=== PATIENT | male | born 1950 | race Two or more races ===

== ENCOUNTER → 2025-02-28 | Outpatient (CLI) | payer MEDICARE, MEDICAID, SELFPAY ==
--- NOTE | 2025-02-28 09:17 | XR_ITS ---
Examination: Shoulder,left, 3 views Technique: Shoulder AP internal rotation, AP external rotation, Y view shoulder, 3 views Exam date and time :February 28, 2025 0930 hours INDICATIONS: Injury to the shoulder today, shoulder pain. FINDINGS: Severe osteopenia. Moderate osteoarthritis glenohumeral joint. Mild left shoulder calcific tendinitis. No shoulder fracture or dislocation IMPRESSION: No shoulder fracture or dislocation. Moderate osteoarthritis glenohumeral joint Mild left shoulder calcific tendinitis
[2025-02-28 10:25] LABS: Basophils # (Auto) 0.0 Thou/mm3 (0.0-0.2); Basophils % (Auto) 0 % (0-2.5); Eosinophils # (Auto) 0.3 Thou/mm3 (0.0-0.5); Eosinophils % (Auto) 5 % (0-10); Hematocrit 43.3 % (41.0-53.0); Hemoglobin 14.9 g/dL (13.5-16.0); Immature Granulocytes Auto 0.02 Thou/mm3 (0.00-0.00); Lymphocytes # (Auto) 1.3 Thou/mm3 (1.0-4.8); Lymphocytes % (Auto) 21 % (10-50); Mean Corpuscular HGB Conc 34.4 g/dl (31.0-37.0); Mean Corpuscular Hemoglobin 31.2 pg (25.0-35.0); Mean Corpuscular Volume 91 fL (80-100); Monocytes # (Auto) 0.5 Thou/mm3 (0.0-0.8); Monocytes % (Auto) 8 % (0-12); Neutrophils # (Auto) 4.2 Thou/mm3 (1.8-7.7); Neutrophils % (Auto) 66 % (37-80); Nucleated Red Blood Cell # 0.00 Thou/mm3 (0.00-0.00); Nucleated Red Blood Cell % 0 /100 WBC (0); Platelet Count 199 Thou/mm3 (140-440); RDW Standard Deviation 41.1 fL (35.1-43.9); Red Blood Count 4.77 Miln/mm3 (4.50-5.90); White Blood Count 6.4 Thou/mm3 (3.8-10.6)
[2025-02-28 10:34] LABS: Glucose Estimated Average 194 mg/dL (80-131); Hemoglobin A1C 8.4 % Hgb (4.8-6.0)
[2025-02-28 10:37] LABS: Alanine Aminotransferase 40 U/L (10-49); Albumin, Serum 4.7 gm/dL (3.4-4.8); Albumin/Globulin Ratio 1.6 (1.2-2.2); Alkaline Phosphatase 145 U/L (46-116); Anion Gap 8 (7-16); Aspartate Amino Transferase 24 U/L (0-34); BUN/Creatinine Ratio 19 Ratio (12-20); Bilirubin,Total 0.7 mg/dL (0.3-1.2); Blood Urea Nitrogen 23 mg/dL (9-23); Calcium 10.1 mg/dL (8.3-10.6); Calcium (Corrected) 10.1 mg/dL (8.5-10.1); Carbon Dioxide 26.0 mMol/L (20.0-31.0); Cardiac Risk Estimate 4.8 RATIO (4.0-6.7); Chloride 107 mMol/L (98-107); Cholesterol 201 mg/dL (132-200); Creatinine (Component) 1.2 mg/dL (0.6-1.3); Globulin 3.0 gm/dL (2.3-3.5); Glucose 154 mg/dL (74-106); HDL Cholesterol 42 mg/dL (40-60); LDL Cholesterol,Calculated 107 mg/dL (0-130); Osmolality,Calculated 287 (275-295); Potassium 4.7 mMol/L (3.4-5.1); Sodium 141 mMol/L (136-145); Thyroid Stimulating Hormone 2.54 uIU/mL (0.55-4.78); Total Protein 7.7 gm/dL (5.7-8.2); Triglycerides 260 mg/dL (30-150); eGFR > 60 See Note
[2025-02-28 10:39] LABS: Prostate Specific Antigen 0.43 ng/mL (0-4.00)
[2025-02-28 10:44] LABS: Collection Type, Urine Clean Catch
[2025-02-28 10:57] LABS: Vitamin B12 1241 pg/mL (211-911); Vitamin D 25 Hydroxy Total 24.2 ng/mL (7.3-40.2)
[2025-02-28 11:08] LABS: Bilirubin,Urine Negative (Negative); Blood,Urine Trace (Negative); Clarity,Urine Clear (Clear/Hazy); Color,Urine Lt-Yellow (Lt Yel-Yel); Culture Indicated,Urine Not Indicated; Glucose, Urine 4+ (Negative); Hyaline Casts,Urine < 1 /hpf (0-1); Ketones,Urine Negative (Negative); Leukocyte Esterase,Urine Negative (Negative); Nitrite,Urine Negative (Negative); PH,Urine 6.0 (5.0-7.0); Protein,Urine 2+ (Neg - Trace); RBC,Urine 2 /hpf (0-3); Specific Gravity,Urine 1.018 (1.001-1.035); Squamous Epithelial Cell,Urine 1 /hpf (0-5); Urobilinogen,Urine Negative mg/dL (0.0-1.0); WBC,Urine 1 /hpf (0-5)
[2025-02-28 11:13] LABS: Creatinine MALB Rnd Ur 54 mg/dL (30-125)
[2025-02-28 11:24] LABS: Microalbumin Creat Ratio 2144 mg/gCrea (<30); Microalbumin, Random Urine 1158 mg/L (0-300)
== END | disposition home or self-care (01) ==
PROVIDERS: PCP Physician Assistant; Referring Provider Physician Assistant; Visit Provider Physician Assistant
DX: M19.012 Primary osteoarthritis, left shoulder (principal); M75.32 Calcific tendinitis of left shoulder; I10 Essential (primary) hypertension; E78.5 Hyperlipidemia, unspecified; Z12.11 Encounter for screening for malignant neoplasm of colon; Z12.5 Encounter for screening for malignant neoplasm of prostate; E11.65 Type 2 diabetes mellitus with hyperglycemia
CPT/HCPCS: 36415; 73030; 80053; 80061; 81001; 82043; 82306; 82570; 82607; 83036; 84153; 84443; 85025

== ENCOUNTER → 2025-03-02 | Outpatient (CLI) | payer MEDICARE, MEDICAID, SELFPAY ==
[2025-03-06 07:04] LABS: Fecal Globin Result NOT DETECTED (NOT DETECTED)
== END | disposition home or self-care (01) ==
LOC: SLDO 10:23
PROVIDERS: PCP Family Medicine; Referring Provider Physician Assistant; Visit Provider Physician Assistant
DX: Z12.11 Encounter for screening for malignant neoplasm of colon (principal)
CPT/HCPCS: 82274; G0328

== ENCOUNTER 2025-04-06 12:36 | Inpatient (IN) | payer MEDICARE, MEDICAID, SELFPAY ==
[2025-04-06] VITALS (17 sets, daily range): BP systolic 147–195; BP diastolic 68–92; PULSE 70–98; RESP 16–32; TEMP 36.4–37.2; O2SAT 93–99; BMI 25.4
--- NOTE | 2025-04-06 12:44 | XR_ITS ---
Examination: AP chest single view Technique one AP portable upright chest single view Date and time: April 06, 2025 1346 hours, comparison January 28, 2018 INDICATIONS: Stroke alert FINDINGS: Mild prominence of ventricle. No aspiration pneumonia. Cardiac leads satisfactory position IMPRESSION: No aspiration pneumonia.
--- NOTE | 2025-04-06 12:44 | XR_ITS ---
Examination: CTA carotids with intravenous contrast CTA brain, head with intravenous contrast. 2-D sagittal, coronal reconstructions. 3-D reconstructions. Exam date and time: April 06, 2025, 1307 hours CTDI: vol (mGy) 24.9 DLP: (mGycm) 172 Technique: Multiple CTA axial brain, head carotid images post intravenous contrast injection 75 cc, Isovue-370. 2-D sagittal, coronal reconstructions. 3-D reconstructions, 3-D post processing including vascular maximum intensity projection images. Low dose protocols were performed. One or more of the following dose reduction techniques were used; automated exposure control, adjustment of the mA and/or KV according to patient size, use of iterative reconstruction technique. Findings: No significant stenoses common carotid arteries carotid bifurcations on the right Heavy calcification left carotid bifurcation, 40-60% stenosis origin left internal carotid artery Dominant left vertebral artery with no critical stenoses in the neck Intracranial vertebral arteries intact 70% to 80% stenosis in the distal basilar artery Posterior cerebral branches fill with no large vessel occlusions Juxtasellar internal carotid arteries demonstrate heavy calcification 50% stenosis on the left 40% stenosis on the on the right No middle cerebral or anterior cerebral artery large vessel occlusions IMPRESSION: 40-60% stenosis origin left internal carotid artery 70-80% stenosis distal basilar artery No cerebral large vessel arterial occlusions
--- NOTE | 2025-04-06 12:44 | XR_ITS ---
Examination: CT brain head without contrast. 2-D sagittal coronal reconstructions Date and time of exam:April 06, 2025 1250 hours, comparison April 19, 2023 INDICATIONS: Stroke alert, onset left-sided body weakness today. CTDI: vol (mGy):52.3 DLP: (mGycm):1121 Technique: Multiple CT axial sections of the brain have been obtained, 5 mm slice thickness. Contrast has not been administered. 2-D sagittal, coronal reconstructions have been obtained Low dose protocols were performed. One or more of the following dose reduction techniques were used; automated exposure control, adjustment of the mA and/or KV according to patient size, use of iterative reconstruction technique. Findings: No significant ventricular enlargement. Intra-axial or extra-axial hemorrhage density is not seen. No mass effect or midline shift Basal cisterns are not remarkable. Fourth ventricle is midline. Cranial vault intact. Impression: Negative for acute hemorrhage, mass effect or midline shift
--- NOTE | 2025-04-06 12:44 | EKG_ITS ---
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
--- NOTE | 2025-04-06 12:44 | PD.EDNEURO ---
Neuro Symptoms Deficit-RME/HPI General Chief Complaint: Neuro Symptoms/Deficit Stated Complaint: sudden onset left sided weakness since 1000 am Time Seen by Provider: 04/06/25 12:43 Arrival date/time: 04/06/25 12:36 Limitations: no limitations RME / HPI RME / HPI Narrative: 75 year old male with history of hypertension, diabetes, s/p cardiac pacemaker (2018) presents to the ED brought in by family for evaluation of left-sided weakness beginning at 10:00a today. Accompanied by pain to his left lower extremity and left-side of abdomen also beginning at 10:00a today. Patient denies any history of similar symptoms or stroke. Denies any recent illness, fevers, chills, chest pain, cough, shortness of breath, n/v/d, or urinary symptoms. Related Data Home Medications ?Medication ?Instructions ?Recorded ?Confirmed metformin 1,000 mg tablet 1,000 mg PO BID 01/27/18 04/06/25 losartan 100 mg tablet 100 mg PO DAILY 04/06/25 04/06/25 Previous Rx's ?Medication ?Instructions ?Recorded aspirin 81 mg tablet,delayed 81 mg PO QDAY #30 tabs 01/29/18 release (Aspir-Low) amlodipine 10 mg tablet 10 mg PO HS 30 days #30 tabs 04/10/25 atorvastatin 40 mg tablet 40 mg PO HS 30 days #30 tabs 04/10/25 Allergies Allergy/AdvReac Type Severity Reaction Status Date / Time No Known Allergies Allergy Verified 04/19/23 14:39 Review of Systems Review of Systems Systems Reviewed: All systems reviewed, normal except as documented Past Medical History Past Medical History CARDIAC: Positive Hypertension ENDOCRINE: Positive Diabetes Mellitus Type 2 Social History SMOKING STATUS: Never smoker SUBSTANCE USE: does not use ED Exam General Limitations: Present no limitations General appearance: Present alert and in no apparent distress Head Head exam: Present atraumatic and normocephalic Eye Eye exam: Present normal appearance, PERRL and EOMI ENT ENT exam: Present normal exam, normal oropharynx and mucous membranes moist Neck Neck exam: Present normal inspection, full ROM and trachea midline Chest Chest inspection: Present normal inspection and symmetric chest wall rise Respiratory Respiratory exam: Present normal lung sounds bilaterally Cardiovascular Cardiovascular exam: Present regular rate, normal rhythm and normal heart sounds Abdominal Exam Abdominal exam: Present soft; Absent distention, tenderness, guarding or rebound Extremities Exam Extremities exam: Present normal inspection Back Exam Back exam: Present normal inspection Neurological Exam Neurological exam: Present alert, oriented X3 and other (left facial droop, left upper extremity weakness) Psychiatric Psychiatric exam: Present normal affect and normal mood Skin Skin exam: Present warm, dry, intact and normal color Course Quality Measures Suspected type of Stroke: Acute Ischemic Tenecteplase given: Reason(s) TPA not given: Outside the time window not given stroke Orders Category Date Time Status Admit to Inpatient Status Routine Admission 04/06/25 17:06 Active Patient Condition Routine Admission 04/06/25 17:05 Ordered Bedside Blood Glucose NOW Care 04/06/25 12:44 Completed COVID-19 Screening Questionnaire NOW Care 04/06/25 16:[address] Screening NOW Care 04/06/25 12:45 Completed Communications Officer NOW Care 04/06/25 12:44 Completed Continuous Pulse Oximetry NOW Care 04/06/25 12:44 Completed Decision to Admit X1 Care 04/06/25 16:43 Completed EKG (ED ONLY) *Do not use* NOW Care 04/06/25 12:44 Completed In and Out Catheter NEEDED Care 04/06/25 12:44 Completed Insert IV NOW Care 04/06/25 12:44 Completed NIH Stroke Scale now Care 04/06/25 12:44 Completed NPO NOW Care 04/06/25 12:44 Completed Notify provider NEEDED Care 04/06/25 17:05 Completed Nurse Swallow Screen x1 Care 04/06/25 12:44 Completed Consult to Neurology / Tele-Neurology Routine Cons 04/06/25 12:[address] angio chest abdomen pelvis Stat Exams 04/06/25 12:[address] angio stroke protocol Stat Exams 04/06/25 12:[address] stroke protocol Stat Exams 04/06/25 12:44 Completed EKG (ED Only) Stat Exams 04/06/25 12:44 Draft US abdomen limited Stat Exams 04/06/25 15:02 Completed XR chest 1V portable Stat Exams 04/06/25 12:44 Completed BNP [B-Type Natriuretic Peptide] Stat Lab 04/06/25 12:45 Completed CBC Stat Lab 04/06/25 12:45 Completed Comprehensive Metabolic Panel Stat Lab 04/06/25 12:45 Completed Drug Screen,Urine Stat Lab 04/06/25 14:02 Completed HCG Titer if Positive Stat Lab 04/06/25 12:45 Completed Magnesium Stat Lab 04/06/25 12:45 Completed Partial Thromboplastin Time Stat Lab 04/06/25 12:45 Completed Prothrombin Time with INR Stat Lab 04/06/25 12:45 Completed Troponin I Stat Lab 04/06/25 12:45 Completed Type and Screen Stat Lab 04/06/25 13:03 Completed Urinalysis, C/S if Indicated Stat Lab 04/06/25 14:02 Completed Albuterol/Ipratr Rt Shirley [Duoneb Rt Shirley] Med 04/06/25 12:55 Discontinued 3 ml INH X1 ONE Ringers Lactated 500 ml [Lactated Ringers] 500 ml Med 04/06/25 15:12 Discontinued IV 500 mls/hr Code Status Routine Oth 04/06/25 17:05 Completed Oxygen Delivery NOW RT 04/06/25 12:44 Completed Vital Signs Vital signs: Vital Signs Temperature 97.9 F 04/06/25 12:42 Pulse Rate 86 04/06/25 12:42 Respiratory Rate 16 04/06/25 12:42 Blood Pressure 157/76 H 04/06/25 12:42 Pulse Oximetry (%) 98 04/06/25 12:42 Oxygen Delivery Method Room Air 04/06/25 12:42 Pulse ox is 98% on room air which is adequate. Neuro Symptoms / Deficit MDM Narrative MDM Narrative:: IDelphine am scribing for and in the presence of Dr. Gamboa. 12:40p Patient evaluated in ED room 15. Stroke alert activated. VS and exam as listed. Ordered labs. CT head, CTA, offered meds for symptom relief.Ct brain unremarkeable. CTA w/o evidence of large vessel occlusion. Labs w/o any acute hematologic abnl, patient creatinine 1.7, UA w/o evidence of infection. 13:45p I spoke with teleneurologist Dr. Núñez. Reports patients last known well is yesterday evening and out of window to receive TNK. Recommends admission for stroke work-up. I spoke with hospitalist team C regarding admission. Kindly accept patient for admissin Patient data External records reviewed:: [facility] previous records Clinical information provided by:: patient Social determinants that could affect healthcare access:: none Patient has the following chronic illnesses:: HTN, DM, s/p pacemaker How is presenting disease/condition affected by chronic disease/condition?: exacerbated by Evaluation data The following diagnostics were reviewed and interpreted by me:: lab results, radiology exam(s) and EKG tracing(s) Lab and/or radiology exams considered but not ordered:: None Interpretation Summary: See [facility] Medications / Prescriptions Medications or Prescriptions considered but not ordered:: None Medication administrations:: Medication Administration History Discontinued Medications Acetaminophen (Acetaminophen 325 Mg Tablet) 1,000 mg PO Q6H PRN PRN Reason: Fever >99.9 Stop: 05/06/25 17:14 Last Admin: 04/06/25 17:55 Dose: 1,000 mg Documented By: BY Acetaminophen (Acetaminophen 500 Mg Tablet) 1,000 mg PO Q6H PRN PRN Reason: Fever >99.9 Stop: 05/06/25 17:14 Acetaminophen (Acetaminophen 325 Mg Tablet) 1,000 mg PO Q4HR PRN PRN Reason: Pain Scale 1-3 Mild Stop: 05/07/25 11:15 Acetaminophen (Acetaminophen 500 Mg Tablet) 1,000 mg PO Q4HR PRN PRN Reason: Pain Scale 1-3 Mild Stop: 05/07/25 11:15 Hydrocodone Bitart/Acetaminophen (Hydrocodone/Apap 5/325 Tablet) 1 tab PO Q6HR PRN PRN Reason: Moderate Pain 4-6 Stop: 04/12/25 10:43 Hydrocodone Bitart/Acetaminophen (Hydrocodone/Apap 5/325 Tablet) 1 tab PO Q6HR PRN PRN Reason: PAIN SCALE 4-6 Moderate Stop: 04/12/25 11:15 Last Admin: 04/10/25 12:15 Dose: 1 tab Documented By: CHRISTI Albuterol/Ipratropium (Albuterol/Ipratropium (Duoneb) Rt Shirley 3 Ml Nebu) 3 ml INH X1 ONE Stop: 04/06/25 12:56 Amlodipine Besylate (Amlodipine Besylate 5 Mg Tablet) 10 mg PO HS GERTRUDIS Stop: 05/08/25 20:59 Last Admin: 04/09/25 20:35 Dose: 10 mg Documented By: Admin: 04/08/25 22:23 Dose: 10 mg Documented By: KIRSTIN Aspirin (Aspirin Ec 81 Mg Tabec) 81 mg PO DAILY GERTRUDIS Stop: 05/07/25 08:59 Last Admin: 04/10/25 08:08 Dose: 81 mg Documented By: Admin: 04/09/25 09:56 Dose: 81 mg Documented By: Admin: 04/08/25 08:12 Dose: 81 mg Documented By: Admin: 04/07/25 09:38 Dose: 81 mg Documented By: MILAN Atorvastatin Calcium (Atorvastatin Calcium 10 Mg Tablet) 40 mg PO HS GERTRUDIS Stop: 05/06/25 20:59 Last Admin: 04/09/25 20:34 Dose: 40 mg Documented By: Admin: 04/08/25 22:23 Dose: 40 mg Documented By: Admin: 04/07/25 22:52 Dose: 40 mg Documented By: Admin: 04/06/25 22:56 Dose: 40 mg Documented By: MARLEY Dextrose (Dextrose 50%-Water Inj 50 Ml Syringe) 25 ml IV Q15MIN PRN PRN Reason: BG 50-70 responsive npo pt Stop: 05/06/25 18:32 Dextrose (Dextrose 50%-Water Inj 50 Ml Syringe) 50 ml IV Q15MIN PRN PRN Reason: BG <50 OR BG <70 & pt unresponsive Stop: 05/06/25 18:32 Diltiazem HCl (Diltiazem 30 Mg Tablet) 30 mg PO BID GERTRUDIS Stop: 05/08/25 11:59 Last Admin: 04/08/25 12:03 Dose: 30 mg Documented By: MILAN Glucagon (Glucagon Inj 1 Mg Vial) 1 mg IM Q15MIN PRN PRN Reason: BG <70, and no IV access Heparin Sodium (Porcine) (Heparin Sod Inj 5000 Unit/Ml Vial) 5,000 unit SC Q12HR GERTRUDIS Stop: 04/20/25 20:59 Last Admin: 04/10/25 08:08 Dose: 5,000 unit Documented By: CHRISTI Co-signed By: RE Admin: 04/09/25 20:43 Dose: 5,000 unit Documented By: RADHA Co-signed By: LILO Admin: 04/09/25 09:56 Dose: 5,000 unit Documented By: MILAN Co-signed By: ERIC Admin: 04/08/25 22:23 Dose: 5,000 unit Documented By: KIRSTIN Co-signed By: LILO Admin: 04/08/25 08:14 Dose: 5,000 unit Documented By: MILAN Co-signed By: ANGELLA Admin: 04/07/25 22:57 Dose: 5,000 unit Documented By: MARIPOSA Co-signed By: LILO Admin: 04/07/25 09:39 Dose: 5,000 unit Documented By: MILAN Co-signed By: ANGELLA Admin: 04/06/25 21:46 Dose: 5,000 unit Documented By: ARIANE Co-signed By: [email or web address] Hydromorphone HCl (Hydromorphone Inj 2 Mg/Ml Vial) 0.5 mg IVP Q6HR PRN PRN Reason: Pain Severe 7-10 Stop: 04/12/25 11:22 Last Admin: 04/07/25 11:47 Dose: 0.5 mg Documented By: MILAN Lactated Ringer's (Lactated Ringers) 500 mls @ 500 mls/hr IV .Q1H ONE Stop: 04/06/25 16:11 Last Infusion: 04/06/25 17:04 Dose: Infused Documented By: Admin: 04/06/25 15:44 Dose: 500 mls/hr Documented By: BY Lactated Ringer's (Lactated Ringers) 1,000 mls @ 125 mls/hr IV .Q8H ONE Stop: 04/07/25 16:47 Last Admin: 04/07/25 09:41 Dose: 125 mls/hr Documented By: MILAN Magnesium Sulfate (Magnesium Sulfate Ivpb) 2 gm in 50 mls @ 25 mls/hr IV X1 ONE Stop: 04/08/25 10:38 Last Admin: 04/08/25 10:00 Dose: 25 mls/hr Documented By: MILAN Lactated Ringer's (Lactated Ringers) 1,000 mls @ 75 mls/hr IV .[id number] ONE Stop: 04/09/25 01:05 Last Admin: 04/08/25 12:03 Dose: 75 mls/hr Documented By: MILAN Lactated Ringer's (Lactated Ringers) 1,000 mls @ 75 mls/hr IV .[id number] GERTRUDIS Stop: 05/09/25 15:23 Last Admin: 04/10/25 05:00 Dose: 75 mls/hr Documented By: Infusion: 04/10/25 04:54 Dose: Infused Documented By: Admin: 04/09/25 15:34 Dose: 75 mls/hr Documented By: MILAN Insulin Human Lispro (Insulin Lispro (Admelog) 1 Unit/0.01 Ml Unit) 0 unit SC AC GERTRUDIS; Protocol Stop: 05/07/25 07:29 Insulin Human Lispro (Insulin Lispro (Admelog) 1 Unit/0.01 Ml Unit) 0 unit SC Q6HR GERTRUDIS; Protocol Stop: 05/06/25 20:14 Last Admin: 04/06/25 21:46 Dose: 1 unit Documented By: ARIANE Co-signed By: [email or web address] Insulin Human Lispro (Insulin Lispro (Admelog) 1 Unit/0.01 Ml Unit) 0 unit SC ACHS GERTRUDIS; Protocol Stop: 05/07/25 07:29 Last Admin: 04/10/25 17:02 Dose: Not Given Documented By: CHRISTI Non-Admin Reason: Patient Refused Admin: 04/10/25 12:06 Dose: Not Given Documented By: CHRISTI Non-Admin Reason: Per Protocol Admin: 04/10/25 07:18 Dose: Not Given Documented By: CHRISTI Non-Admin Reason: Per Protocol Admin: 04/09/25 20:44 Dose: 1 unit Documented By: RADHA Co-signed By: LILO Admin: 04/09/25 17:29 Dose: 3 unit Documented By: MILAN Co-signed By: ERIC(2) Admin: 04/09/25 11:53 Dose: 2 unit Documented By: MILAN Co-signed By: HERIBERTO Admin: 04/09/25 08:00 Dose: Not Given Documented By: MILAN Non-Admin Reason: Per Protocol Admin: 04/08/25 22:23 Dose: Not Given Documented By: KIRSTIN Non-Admin Reason: Per Protocol Admin: 04/08/25 17:07 Dose: 1 unit Documented By: MILAN Co-signed By: ANGELLA Admin: 04/08/25 12:07 Dose: 2 unit Documented By: MILAN Co-signed By: ERIC(2) Admin: 04/08/25 08:14 Dose: 1 unit Documented By: MILAN Co-signed By: ANGELLA Admin: 04/08/25 00:14 Dose: 1 unit Documented By: MARIPOSA Co-signed By: LILO Admin: 04/07/25 17:53 Dose: 2 unit Documented By: MILAN Co-signed By: ANGELLA Admin: 04/07/25 11:57 Dose: 1 unit Documented By: MILAN Co-signed By: ALEX Admin: 04/07/25 07:29 Dose: Not Given Documented By: MILAN Non-Admin Reason: Per Protocol Labetalol HCl (Labetalol Inj 5 Mg/Ml Vial 20 Ml) 10 mg IVP X1 PRN PRN Reason: Hypertensive Emergency Labetalol HCl (Labetalol Inj 5 Mg/Ml Vial 20 Ml) 10 mg IVP Q15MIN PRN PRN Reason: Hypertensive Emergency Stop: 05/06/25 20:05 Losartan Potassium (Losartan Potassium 25 Mg Tablet) 100 mg PO DAILY GERTRUDIS Stop: 05/08/25 08:59 Last Admin: 04/08/25 08:12 Dose: 100 mg Documented By: MILAN Morphine Sulfate (Morphine Sulf Inj 4 Mg/Ml Vial) 0.5 mg IV Q6HR PRN PRN Reason: PAIN SCALE 7-10 (Severe Stop: 04/12/25 11:15 Pantoprazole Sodium (Pantoprazole Inj 40 Mg Vial) 40 mg IVP Q12HR GERTRUDIS Stop: 05/06/25 20:59 Last Admin: 04/09/25 09:56 Dose: 40 mg Documented By: Admin: 04/08/25 22:23 Dose: 40 mg Documented By: Admin: 04/08/25 08:14 Dose: 40 mg Documented By: Admin: 04/07/25 22:53 Dose: 40 mg Documented By: Admin: 04/07/25 09:41 Dose: 40 mg Documented By: Admin: 04/06/25 21:45 Dose: 40 mg Documented By: ARIANE See above Consultations Consultation(s) initiated? (list below): Yes Consultation #1 (Physician, Specialty, Details): See MDM Diagnosis Neuro Differential Diagnosis: other (See MDM) Most likely diagnosis given after review of the tests above:: CARMELA Transaminitis Left sided weakness Chest pain Admission Indicated Admission indicated?: indicated Admission Request Was there a request for admission?: Yes Admission Attestation Admission request attestation: Discussed case with Hospitalist service regarding admission. Discussed patients ED course, exam findings, labs, and radiology results. The Hospitalist [agrees] to accept the patient for admission. Disposition Plan Disposition Plan: Admit Critical Care Time Critical Care Time Critical Care Time: Yes Total Critical Care Time (min.): 35 Attestation: The high probability of sudden, clinically significant deterioration in the patient's condition required the highest level of my preparedness to intervene urgently. The services I provided to this patient were to treat and/or prevent clinically significant deterioration. Services included the following: chart data review, reviewing nursing notes and/or old charts, documentation time, spa consultant collaboration regarding findings and treatment options, medication orders and management, direct patient care, vital sign assessments and ordering, interpreting and reviewing diagnostic studies and lab tests. Aggregate critical care time includes only time during which I was engaged in work directly related to the patient's care, as described above, whether at bedside or elsewhere in the Emergency Department. It did not include time spent performing other reported procedures or the services of residents, students, nurses or physician assistants. Discharge Plan Plan Patient Disposition: Admit Acute Care w/in Hospital Patient condition on transfer: Stable Problem List Clinical Impression: CARMELA (acute kidney injury), Transaminitis, Left-sided weakness, Chest pain Patient/Caregiver Discharge Instructions Other Activity Instructions:: Atorvastatin dose increased to 40 mg daily ? Start taking amlodipine 10 mg daily for blood pressure control ? Continue taking all other home medications as prescribed ? Follow-up with PCP within 1-2 weeks of discharge and recommend referral to rattling machine tender if renal function continues to decline ? Follow-up with neurologist, Dr. Rocha, outpatient for MRI studies ? If you do not have a PCP, you can follow-up at the [facility] (you can call [phone] to make an appointment) ? Return to ED if symptoms worsen or recur
--- NOTE | 2025-04-06 12:45 | XR_ITS ---
Examination: CTA chest, with intravenous contrast. CTA abdomen, with intravenous contrast. CTA pelvis, with intravenous contrast. 2-D sagittal and coronal reconstructions. 3-D reconstructions. Date and time of exam: April 06, 2025, 1311 hours INDICATIONS: Onset chest pain shortness of breath abdominal pain this week CTDI vol (mgy) 23.2 DLP (MGycm) 857 Technique: Multiple CTA images, 2.0 mm slice thickness, obtained chest, abdomen, pelvis, with the high-resolution 64 slice scanner. 100 cc Isovue-370 is administered intravenously. Sagittal and coronal 2-D reconstructions are obtained. 3-D reconstructions, angiographic images are obtained. 3-D postprocessing, including vascular maximum intensity projections. Low dose protocols were performed. One or more of the following dose reduction techniques were used; automated exposure control, adjustment of the mA and/or KV according to patient size, use of iterative reconstruction technique. Findings: No thoracic aortic aneurysmal dilatation or dissection No pulmonary artery filling defects Heavy calcification left anterior descending coronary artery No pneumonia pulmonary edema or pleural disease No visualized liver or splenic lesion Contracted gallbladder No pancreatic mass No extra hepatic biliary tract dilatation No adrenal mass Abdominal aorta is not enlarged Moderate renal scar formation, no hydronephrosis No bowel obstruction Normal appendix No diverticulitis Intact urinary bladder No significant prostatomegaly Severe osteopenia with prominent lumbar spondylosis IMPRESSION: Heavy calcification left anterior descending coronary artery Negative for pulmonary artery emboli Negative for thoracic aortic aneurysm or dissection No renal or ureteral calculi, no hydronephrosis Moderate renal parenchymal scar formation Normal appendix No bowel obstruction or diverticulitis
[2025-04-06 13:16] LABS: Basophils # (Auto) 0.0 Thou/mm3 (0.0-0.2); Basophils % (Auto) 0 % (0-2.5); Eosinophils # (Auto) 0.0 Thou/mm3 (0.0-0.5); Eosinophils % (Auto) 0 % (0-10); Hematocrit 35.5 % (41.0-53.0); Hemoglobin 12.5 g/dL (13.5-16.0); Immature Granulocytes Auto 0.04 Thou/mm3 (0.00-0.00); Lymphocytes # (Auto) 0.8 Thou/mm3 (1.0-4.8); Lymphocytes % (Auto) 8 % (10-50); Mean Corpuscular HGB Conc 35.2 g/dl (31.0-37.0); Mean Corpuscular Hemoglobin 30.5 pg (25.0-35.0); Mean Corpuscular Volume 87 fL (80-100); Monocytes # (Auto) 0.7 Thou/mm3 (0.0-0.8); Monocytes % (Auto) 7 % (0-12); Neutrophils # (Auto) 8.2 Thou/mm3 (1.8-7.7); Neutrophils % (Auto) 84 % (37-80); Nucleated Red Blood Cell # 0.00 Thou/mm3 (0.00-0.00); Nucleated Red Blood Cell % 0 /100 WBC (0); Platelet Count 195 Thou/mm3 (140-440); RDW Standard Deviation 37.8 fL (35.1-43.9); Red Blood Count 4.10 Miln/mm3 (4.50-5.90); White Blood Count 9.7 Thou/mm3 (3.8-10.6)
[2025-04-06 13:19] LABS: HCG Titer if Positive Negative; INR 1.0 (0.9-1.3); Partial Thromboplastin Time 27.3 Seconds (22.0-36.0); Prothrombin Time 11.1 Seconds (9.0-12.2)
[2025-04-06 13:27] LABS: Alanine Aminotransferase 107 U/L (10-49); Albumin, Serum 4.3 gm/dL (3.4-4.8); Albumin/Globulin Ratio 1.4 (1.2-2.2); Alkaline Phosphatase 350 U/L (46-116); Anion Gap 12 (7-16); Aspartate Amino Transferase 98 U/L (0-34); BUN/Creatinine Ratio 15 Ratio (12-20); Bilirubin,Total 1.6 mg/dL (0.3-1.2); Blood Urea Nitrogen 26 mg/dL (9-23); Calcium 9.3 mg/dL (8.3-10.6); Calcium (Corrected) 9.3 mg/dL (8.5-10.1); Carbon Dioxide 22.9 mMol/L (20.0-31.0); Chloride 102 mMol/L (98-107); Creatinine (Component) 1.7 mg/dL (0.6-1.3); Globulin 3.0 gm/dL (2.3-3.5); Glucose 264 mg/dL (74-106); Magnesium 1.5 mg/dL (1.6-2.6); Osmolality,Calculated 287 (275-295); Potassium 4.4 mMol/L (3.4-5.1); Sodium 137 mMol/L (136-145); Total Protein 7.3 gm/dL (5.7-8.2); Troponin I 0.024 ng/mL (0.0-0.045); eGFR 41 See Note
[2025-04-06 13:38] LABS: B-Type Natriuretic Peptide 152 pg/mL (0-100)
--- NOTE | 2025-04-06 14:01 | PD.TNEURO ---
Tele Neuro Consultation Consultation Date 04/06/25 Most Recent Vital Signs Last Vital Signs Temp 97.6 F 04/06/25 13:38 Pulse 84 04/06/25 13:38 Resp 18 04/06/25 13:38 BP 191/92 H 04/06/25 13:38 Pulse Ox 96 04/06/25 13:38 O2 Del Method Room Air 04/06/25 13:38 O2 Flow Rate 98 04/06/25 13:31 Laboratory-Coagulation Panel PT 11.1 Seconds (9.0-12.2) 04/06/25 12:45 INR 1.0 (0.9-1.3) 04/06/25 12:45 APTT 27.3 Seconds (22.0-36.0) 04/06/25 12:45 Consultation Narrative [facility] Tele[facility]rology Consult Services Patient Name:???KEYANNA PARIKH Date of :???[id number] Identification Number:??? Date of Service:???04/06/2025 12:59:02 Diagnosis:?R53.1 - Weakness ?R26.81 - Unsteady gait Impression: ?75 yr old man hx of htn, lipids, DM, post pacemaker, comes with L leg weakness, pain, Niece is at bedside and helps with history. Cymro interpretation is used for entire assessment and management. ?The pt has been having L leg pain, weakness for last 1- days. This morning, he woke up at 9 am, had difficulty walking because of L leg pain , weakness, noted to have L facial droop. He has L shoulder pain from fall and injury few weeks ago. NIH 4- L face, arm, leg drift, disorientation to month. he denied headache, neck pain, he has low back pain, no urine or bowel habit changes. ?CT head no acute changes per radiology. 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 ?Diff Dx: r/o CVA, TIA, HTN encephalopathy, lumbo sacral radiculopathy , other, out of iv thrombolytic window. Our recommendations are outlined below. Recommendations: ? Stroke/Telemetry Floor ? Neuro Checks (Q4) ? Bedside Swallow Eval ? DVT Prophylaxis ? IV Fluids, Normal Saline ? Head of Bed 30 Degrees ? Euglycemia and Avoid Hyperthermia (PRN Acetaminophen) ? Initiate or continue Aspirin 325 MG daily ? Antihypertensives PRN if Blood pressure is greater than 220/120 or there is a concern for End organ damage/contraindications for permissive HTN. If blood pressure is greater than 220/120 give labetalol PO or IV or Vasotec IV with a goal of 15% reduction in BP during the first 24 hours. ?- close neuro checks, and re consult with any clinical changes, given basilar artery stenosis, permissive HTN , ASA ?- MRI brain and MRI LS spine to r/o cva, lumbar radiculopathy ?- Neuro fup ?d/w pt, niece, family, RN ?Cymro interpretation used ?d/w ER Dr Gamboa all the recs., Sign Out: ? Discussed with Emergency Department Provider Advanced Imaging:CTA Head and Neck Completed. LVO:No Patient is not a candidate for ROSETTA Metrics: Last Known Well: Unknown Dispatch Time: 04/06/2025 12:59:02 Arrival Time: 04/06/2025 12:36:00 Initial Response Time: 04/06/2025 13:11:28Symptoms: L leg pain, weakness. Initial patient interaction: 04/06/2025 13:29:41 NIHSS Assessment Completed: 04/06/2025 13:35:04Patient is not a candidate for Thrombolytic. Thrombolytic Medical Decision: 04/06/2025 13:35:28Patient was not deemed candidate for Thrombolytic because of following reasons: LKW outside 4.[address] Head: CT head unremarkable for acute infarction or hemorrhage per Radiology: no acute changes per radiology. Primary Provider Notified of Diagnostic Impression and Management Plan on: 04/06/2025 13:53:45 History of Present Illness:Patient is a 75 year old Male. Patient was brought by private transportation with symptoms of L leg pain, weakness. 75 yr old man hx of htn, lipids, DM, post pacemaker, comes with L leg weakness, pain, Niece is at bedside and helps with history. Cymro interpretation is used for entire assessment and management. The pt has been having L leg pain, weakness for last 1- days. This morning, he woke up at 9 am, had difficulty walking because of L leg pain , weakness, noted to have L facial droop. He has L shoulder pain from fall and injury few weeks ago. NIH 4- L face, arm, leg drift, disorientation to month. he denied headache, neck pain, he has low back pain, no urine or bowel habit changes. ? Past Medical History: ?Hypertension ?Diabetes Mellitus ?Hyperlipidemia Other PMH:? pacemaker Medications: No Anticoagulant use? No Antiplatelet use Reviewed EMR for current medications Allergies:? Reviewed Social History: Smoking: No Family History: There is no family history of premature cerebrovascular disease pertinent to this consultation ROS : 14 Points Review of Systems was performed and was negative except mentioned in HPI. Past Surgical History: There Is No Surgical History Contributory To Today?s Visit ? Examination: BP(190/70),?Pulse(85), 1A: Level of Consciousness - Alert; keenly responsive?+ 0 1B: Ask Month and Age - 1 Question Right?+ 1 1C: Blink Eyes & Squeeze Hands - Performs Both Tasks?+ 0 2: Test Horizontal Extraocular Movements - Normal?+ 0 3: Test Visual Pederson - No Visual Loss?+ 0 4: Test Facial Palsy (Use Grimace if Obtunded) - Minor paralysis (flat nasolabial fold, smile asymmetry)?+ 1 5A: Test Left Arm Motor Drift - Drift, but doesn't hit bed?+ 1 5B: Test Right Arm Motor Drift - No Drift for 10 Seconds?+ 0 6A: Test Left Leg Motor Drift - Drift, but doesn't hit bed?+ 1 6B: Test Right Leg Motor Drift - No Drift for 5 Seconds?+ 0 7: Test Limb Ataxia (FNF/Heel-Anna) - No Ataxia?+ 0 8: Test Sensation - Normal; No sensory loss?+ 0 9: Test Language/Aphasia - Normal; No aphasia?+ 0 10: Test Dysarthria - Normal?+ 0 11: Test Extinction/Inattention - No abnormality?+ 0 NIHSS Score:?4 NIHSS Free Text :?L arm / shoulder pain from fracture/ trauma from fall, L leg pain and weakness, gait deferred Pre-Morbid Modified Van Zandt Scale: 1 Points = No significant disability despite symptoms; able to carry out all usual duties and activities Spoke with :?SHIRA Gamboa This consult was conducted in real time using interactive audio and video technology. Patient was informed of the technology being used for this visit and agreed to proceed. Patient located in hospital and provider located at home/office setting. Patient is being evaluated for possible acute neurologic impairment and high probability of imminent or life-threatening deterioration. I spent total of 55 minutes providing care to this patient, including time for face to face visit via telemedicine, review of medical records, imaging studies and discussion of findings with providers, the patient and/or family. Dr Kelli Núñez [facility] For Inpatient follow-up with [facility] physician please call [facility] at . As we are not an outpatient service for any post hospital discharge needs please contact the hospital for assistance. If you have any questions for the [facility] physicians or need to reconsult for clinical or diagnostic changes please contact us via [facility] at . Signature :Sabas Núñez ?
[2025-04-06 14:11] LABS: Collection Type, Urine Catheter
[2025-04-06 14:13] LABS: Bilirubin,Urine Negative (Negative); Blood,Urine 3+ (Negative); Clarity,Urine Clear (Clear/Hazy); Color,Urine Lt-Yellow (Lt Yel-Yel); Culture Indicated,Urine Not Indicated; Glucose, Urine 2+ (Negative); Ketones,Urine Negative (Negative); Leukocyte Esterase,Urine Negative (Negative); Nitrite,Urine Negative (Negative); PH,Urine 6.5 (5.0-7.0); Protein,Urine 1+ (Neg - Trace); RBC,Urine 2 /hpf (0-3); Specific Gravity,Urine 1.029 (1.001-1.035); Squamous Epithelial Cell,Urine < 1 /hpf (0-5); Urobilinogen,Urine Negative mg/dL (0.0-1.0); WBC,Urine < 1 /hpf (0-5)
[2025-04-06 14:21] LABS: Amphetamine/Methamp Scrn,U Negative (Negative); Barbiturate Screen,Urine Negative (Negative); Benzodiazepines Screen,Urine Negative (Negative); Benzoylecgonine Screen, Ur Negative (Negative); Fentanyl Screen,Urine Negative (Negative); Opiate Screen,Urine Negative (Negative); THC Screen,Urine Negative (Negative)
--- NOTE | 2025-04-06 15:02 | XR_ITS ---
Examination: Abdomen sonogram, Limited Date and time of exam: April 06, 2025 1559 hours INDICATIONS: Shortness of breath abdominal pain this week Technique: Real-time hollingsworth scale transabdominal sonographic images of the upper abdomen obtained. Findings: Contracted gallbladder Common bile duct 0.3 cm Pancreatic head 1.8 cm Liver 12.3 cm no focal liver lesions Normal hepatopedal portal venous flow Patent IVC IMPRESSION: Repeat the gallbladder portion of the study with fasting
[2025-04-06] MEDS: RINGERS LACTATED 500 ML 500 ML IV (15:44)
--- NOTE | 2025-04-06 15:51 | PC.NURSE ---
DR Leung at bedside with patient
[2025-04-06] MEDS: ACETAMINOPHEN 325 MG TABLET 1000 MG PO (17:55)
--- NOTE | 2025-04-06 18:30 | ECHO_ITS ---
Transthoracic Echo Report Ht (in): 62 Wt (lb): 139 Exam Location: [facility] Status: Inpatient Project Controls Scheduler: Trae Dsouza Indications: Procedure Performed: BP: 130 / 61 HR: 70 MEASUREMENTS (Male / Female) Normal Values 2D ECHO LV Diastolic Diameter PLAX 4.8 cm 4.2 - 5.9 / 3.9 - 5.3 cm LV Systolic Diameter PLAX 2.9 cm IVS Diastolic Thickness 0.9 cm 0.6 - 1.0 / 0.6 - 0.9 cm LVPW Diastolic Thickness 0.9 cm 0.6 - 1.0 / 0.6 - 0.9 cm LV Relative Wall Thickness 0.4 LVOT Diameter 1.9 cm LA Volume Index 27.7 cm?/m? 16 - 28 cm?/m? Ascending Aorta Diameter 2.6 cm M-MODE AV Cusp Separation MM 1.1 cm DOPPLER AV Peak Velocity 166.0 cm/s AV Peak Gradient 11.0 mmHg AV Mean Gradient 6.0 mmHg AV Velocity Time Integral 32.6 cm AI Peak Velocity 412.5 cm/s AI Peak Gradient 68.1 mmHg AI Pressure Half Time 547.5 ms LVOT Peak Velocity 106.0 cm/s LVOT Peak Gradient 4.5 mmHg LVOT Velocity Time Integral 21.2 cm LVOT Cardiac Index 2513.1 cm?/min?m? AV Area Cont Eq vti 1.8 cm? AV Area Cont Eq pk 1.8 cm? MV Area PHT 4.3 cm? Mitral E Point Velocity 67.3 cm/s Mitral A Point Velocity 81.0 cm/s Mitral E to A Ratio 0.8 LV E' Lateral Velocity 7.6 cm/s Mitral E to LV E' Lateral Ratio 8.8 LV E' Septal Velocity 5.0 cm/s Mitral E to LV E' Septal Ratio 13.5 TR Peak Velocity 258.5 cm/s TR Peak Gradient 26.7 mmHg PV Peak Velocity 96.4 cm/s PV Peak Gradient 3.7 mmHg FINDINGS Left Ventricle Normal left ventricular size, wall thickness, systolic function with no obvious regional wall motion abnormalities. There is grade I diastolic dysfunction of the left ventricle (impaired relaxation pattern). The ejection fraction is visually estimated at 50-55 %. Right Ventricle The right ventricle is normal in size and systolic function. The estimated right ventricular systolic pressure,33 mmHg with RAP 3. Mild HTN Left Atrium The left atrial cavity size is mildly increased. Right Atrium The right atrium is normal by two-dimensional imaging, color flow and Doppler imaging with no structural abnormalities, no thrombus formation present. Atrial Septum The interatrial septum appears normal with no evidence of a shunt. No jhayn-sh-imth shunt demonstrated by agitated saline injection. Aorta The aorta is normal by two-dimensional, color flow and Doppler interrogation. Mitral Valve The mitral valve is normal by two-dimensional, color flow and Doppler interrogation.Mild mitral regurgitation. Aortic Valve Aortic valve sclerosis without stenosis. Ohkapccv-ib-kyxghb aortic valve regurgitation. Tricuspid Valve The tricuspid valve is normal by two-dimensional, color flow and Doppler interrogation. There is mild to moderate tricuspid valve regurgitation. Pulmonic Valve The pulmonic valve is not well visualized. There is no significant pulmonic valve regurgitation. Vessels The pulmonary artery appears normal. The inferior vena cava pulmonary and hepatic veins appear normal. Pericardium The pericardium is normal by two-dimensional imaging. There is no significant pericardial effusion. CONCLUSIONS Indication: CVA Bubble study negative for any PFO or ASD.. Consider NICKI if high clinical index of suspicion of LA or LA thrombus Normal left ventricular size and function. Grade I diastolic dysfunction. Approximate ejection fraction is 55- 60%. Normal right ventricular size and function. RVSP 33 mmHg with RAP 3. Mild MR and AI. Moderate to severe TR. Pace wire noted in RV/RA Mild dilated LA . Mild to moderate aortic valve stenosis without stenosis. Bebeto Mckenzie (Electronically Signed) Final Date: 08 April 2025 23:16
--- NOTE | 2025-04-06 18:35 | PC.NURSE ---
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
--- NOTE | 2025-04-06 19:35 | PD.RESCONSUL ---
HPI Data of Consult Requesting Physician: Brandon Seay MD Admitting Provider: Brandon Seay MD Attending Provider: Brandon Seay MD Primary Care Provider: Physician No Primary/Family Consult Narrative Reason for consult: stroke and lumbosacral radiculopathy History of present illness: This patient is a 75-year-old male with past medical history of hypertension, hyperlipidemia, type 2 diabetes, post pacemaker presented to the ED on 04/06/2025 with chief complaint of left leg weakness and pain. Niece is present at the bedside and helped with the history. Patient reported that she had left leg pain and weakness from last 1 day. This morning, patient woke up at 9 AM and had difficulty walking associated with leg pain and weakness and noted to have left sided facial droop. He also reported to have left shoulder pain due to fall and injury few weeks ago. NIHSS is 4. He denied any headache, neck pain and has low back pain. Denied any changes in urine or bowel habits. Head CT showed no acute changes. 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 In the ED, patient was hypertensive blood pressure 182/76, heart rate 90, afebrile and saturating well on room air. Labs showed unremarkable white count and normocytic anemia with hemoglobin 12.5. Coagulation panel showed INR 1.0. Chemistry panel was unremarkable. Kidney function shows CARMELA with BUN 26 and creatinine 1.7. Blood glucose 264. A1c from 02/28/2025 8.4. Magnesium 1.5. Mildly elevated liver enzymes with elevated T. bili 1.6. Urinalysis showed proteins, glucose and lites. U tox was negative. EKG showed electronic ventricular pacemaker with QTc 472. CTA chest abdomen pelvis showed heavy calcified LAD. Neuroexam revealed patient has left facial droop, left arm drift and left leg weakness. Left leg weakness is vague as patient has pain in his leg and was having difficulty lifting that leg during assessment. Left arm drift was attributed to shoulder trauma in the past per patient's niece. PMH: As above PSH: Pacemaker placement SH: Denies smoking, drinking alcohol. No history of illicit drug use. Allergies: NKDA FH: No history of CVA Home medications: Metformin and losartan, med rec pending Patient was seen and examined at the bedside. Patient's niece was also present at the bedside. She reported that patient this morning had left-sided weakness and pain around 10:00 while EMS was called. Patient also fell but denied hitting his head on the floor. Patient's niece noted that patient had left facial droop. Patient denied any chest pain, fever chills or any other complaint. Patient's niece reported that patient's blood pressure has been uncontrolled with the medications he is taking and has been seeing his PCP for optimization of medications. He has difficulty walking. Patient also has inattention and did not knew why he is in the hospital. Neuroexam revealed patient has left facial droop, left arm drift and left leg weakness. Left leg weakness is vague as patient has pain in his leg and was having difficulty lifting that leg during assessment. Leg pain appears to be sciatic type as straight leg raise was positive. Left arm drift was attributed to shoulder trauma in the past per patient's niece. Recommended to continue aspirin and statin. Will follow-up with MRI brain, MRI lumbo-sacral spine and echo with bubble study. cc:: cc: Brandon Seay MD Review of Systems Review of Systems Systems Reviewed: All systems reviewed, normal except as documented Past Medical History Past Medical History CARDIAC: Positive Hypertension ENDOCRINE: Positive Diabetes Mellitus Type 2 Social History SMOKING STATUS: Never smoker SUBSTANCE USE: does not use Exam Vital Signs Temp Pulse Resp BP Pulse Ox O2 Del Method O2 Flow Rate 98.9 F 76 22 H 169/87 H 98 Room Air 98 04/06/25 17:44 04/06/25 18:26 04/06/25 18:26 04/06/25 18:26 04/06/25 18:26 04/06/25 18:26 04/06/25 13:31 Narrative Exam GENERAL APPEARANCE: AxOx2, eldery male, no acute distress. HEENT: NC, AT. MMM. EOMI, clear conjunctiva, oropharynx clear. NECK: Supple without lymphadenopathy. No stiffness or restricted ROM. HEART: Normal rate and regular rhythm, normal S1/S2, no m/r/g LUNGS: CTAB, moving air well. No crackles or wheezes are heard. ABDOMEN: Soft, nontender, nondistended with good bowel sounds heard. BACK: No CVAT, no obvious deformity. EXTREMITIES: left UE mobility limited due to shoulder pain along with left arm drift NEUROLOGICAL: Grossly nonfocal. Alert and orientedx2 not to place. He has difficulty walking. inattention noted. Neuroexam revealed patient has left facial droop, left arm drift and left leg weakness. Left leg weakness is vague as patient has pain in his leg and was having difficulty lifting that leg during assessment. Leg pain appears to be sciatic type as straight leg raise was positive. Skin: Warm and dry without any rash. Psych: memory lapses with appropriate mood and affect Results Labs 04/07/25 05:15 04/07/25 05:15 Labs: Short CBC 04/06/25 Range/Units 12:45 WBC 9.7 (3.8-10.6) Thou/mm3 Hgb 12.5 L (13.5-16.0) g/dL Hct 35.5 L (41.0-53.0) % Plt Count 195 (140-440) Thou/mm3 BMP 04/06/25 12:45 Sodium 137 Potassium 4.4 Chloride 102 Carbon Dioxide 22.9 BUN 26 H Creatinine 1.7 H Glucose 264 H Calcium 9.3 Cardiac Enzymes 04/06/25 Range/Units 12:45 Troponin I 0.024 (0.0-0.045) ng/mL Liver Function 04/06/25 Range/Units 12:45 Total Bilirubin 1.6 H (0.3-1.2) mg/dL AST 98 H (0-34) U/L ALT 107 H (10-49) U/L Alkaline Phosphatase 350 H (46-116) U/L Albumin 4.3 (3.4-4.8) gm/dL Urine 04/06/25 Range/Units 14:02 Urine Color Lt-Yellow (Lt Yel-Yel) Urine Clarity Clear (Clear/Hazy) Urine pH 6.5 (5.0-7.0) Ur Specific [place] 1.029 (1.001-1.035) Urine Protein 1+ A (Neg - Trace) Urine Glucose (UA) 2+ A (Negative) Quality Measures Quality Measures VTE prophylaxis (Heparin SC ) and stroke Suspected type of Stroke: Unknown at this time Tenecteplase given: Reason(s) Tenecteplase not given: Outside the time window not given Rehab services: PT evaluation ordered and Speech Language Pathology eval ordered VTE Prophylaxis: pharmaceutical Antithrombotic by day 2:: not indicated (describe) Statin ordered: >75 y/o moderate or high intensity dose Anticoagulation ordered for A-fib or flutter (current or hx): not indicated Advance care planning discussed with:: patient Medications Home Medications and Allergies Home Medications ?Medication ?Instructions ?Recorded ?Confirmed ?Type metformin 1,000 mg tablet 1,000 mg PO BID 01/27/18 04/06/25 History atorvastatin 10 mg tablet 10 mg PO HS 04/06/25 04/06/25 History losartan 100 mg tablet 100 mg PO DAILY 04/06/25 04/06/25 History Allergies Allergy/AdvReac Type Severity Reaction Status Date / Time No Known Allergies Allergy Verified 04/19/23 14:39 Visit Medications Acetaminophen (Acetaminophen 325 Mg Tablet) 1,000 mg PO Q6H PRN PRN Reason: Fever >99.9 Stop: 05/06/25 17:14 Last Admin: 04/06/25 17:55 Dose: 1,000 mg Aspirin (Aspirin Ec 81 Mg Tabec) 81 mg PO DAILY [facility] Stop: 05/07/25 08:59 Atorvastatin Calcium (Atorvastatin Calcium 10 Mg Tablet) 40 mg PO HS [facility] Stop: 05/06/25 20:59 Dextrose (Dextrose 50%-Water Inj 50 Ml Syringe) 25 ml IV Q15MIN PRN PRN Reason: BG 50-70 responsive npo pt Stop: 05/06/25 18:32 Dextrose (Dextrose 50%-Water Inj 50 Ml Syringe) 50 ml IV Q15MIN PRN PRN Reason: BG <50 OR BG <70 & pt unresponsive Stop: 05/06/25 18:32 Glucagon (Glucagon Inj 1 Mg Vial) 1 mg IM Q15MIN PRN PRN Reason: BG <70, and no IV access Heparin Sodium (Porcine) (Heparin Sod Inj 5000 Unit/Ml Vial) 5,000 unit SC Q12HR [facility] Stop: 04/20/25 20:59 Insulin Human Lispro (Insulin Lispro (Admelog) 1 Unit/0.01 Ml Unit) 0 unit SC AC [facility]; Protocol Stop: 05/07/25 07:29 Labetalol HCl (Labetalol Inj 5 Mg/Ml Vial 20 Ml) 10 mg IVP X1 PRN PRN Reason: Hypertensive Emergency Pantoprazole Sodium (Pantoprazole Inj 40 Mg Vial) 40 mg IVP Q12HR [facility] Stop: 05/06/25 20:59 Discontinued Medications Albuterol/Ipratropium (Albuterol/Ipratropium (Duoneb) Rt Shirley 3 Ml Nebu) 3 ml INH X1 ONE Stop: 04/06/25 12:56 Lactated Ringer's (Lactated Ringers) 500 mls @ 500 mls/hr IV .Q1H ONE Stop: 04/06/25 16:11 Last Infusion: 04/06/25 17:04 Dose: Infused Assessment & Plan Plan This patient is a 75-year-old male with past medical history of hypertension, hyperlipidemia, type 2 diabetes, post pacemaker presented to the ED on 04/06/2025 with chief complaint of left leg weakness and pain. Patient reported that she noted to have left-sided facial droop and had left leg pain and weakness from last 1 day. Admitted for stroke workup. #Stroke vs Lumbosacral radiculopathy DDx: CVA, TIA, hypertension encephalopathy, lumbosacral radiculopathy Patient presented with left leg pain and weakness associated with left-sided facial droop noted 1 day ago. Last well-known time 9 AM. NIHSS is 4. Patient was out of window for tPA. Head CT showed no acute changes. 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 Patient received aspirin 325 mg in the ED. Left leg pain appears to be related with sciatica and straight leg rest was posiitve Plan: Continue aspirin 81 mg once daily and atorvastatin 40 mg at bedtime Follow-up with MRI brain, MRI lumbosacral spine and echo with bubble study Neurochecks Q4 hourly Bedside swallow eval Physical therapy Allow permissive hypertension for first 24 hours Antihypertensives PRN if Blood pressure is greater than 220/120 or there is a concern for End organ damage/contraindications for permissive HTN. If blood pressure is greater than 220/120 give labetalol PO or IV or Vasotec IV with a goal of 15% reduction in BP during the first 24 hours. Follow-up with lab work #History of uncontrolled hypertension #History of hyperlipidemia #History of type 2 diabetes #CARMELA likely prerenal #Transaminitis with elevated T. bili #Normocytic anemia #Hx of pacemaker placement Rest of the management as per primary care team. Plan of care discussed with neurologist, Dr Josefina Jones MD, PGY 3 Attending Provider Attestation/Addendum I personally have seen and examined the patient at the bedside and agreed with resident's findings, assessment and plan of care. Patient's presenting symptoms are unlikely to be stroke related but will follow-up with MRI brain and lumbosacral spine when they become available. Will continue with symptomatic treatment with low-dose of gabapentin at 100 mg twice a day along with baclofen 10 mg for his persistent severe pain in the proximal thigh and worsening sciatica like pain on the left. Noted his kidney function is marginal.
--- NOTE | 2025-04-06 19:38 | ESHP_ITS ---
<Statement entered by Sony Wiggins MD - 04/06/25 22:50> Note reviewed and agree with care plan as documented. Please refer to the note below for further details. Plan discussed with attending physician Dr. Geena Wiggins MD PGY-2 Internal Medicine Documentation for date of: 04/06/25 HPI History of Present Illness History of present illness: HPI: 75-year-old male past medical history hypertension, hyperlipidemia, type 2 diabetes, pacemaker placement, presented to the ED on 04/06/2025 with left-sided weakness and left-sided facial droop. Patient is a poor historian. Per the patient's niece present at bedside, the patient had a fall the morning of presentation due to left leg weakness but had no associated trauma. The patient denied loss of consciousness during the fall but did not seem to remember the event. The patient does have left shoulder pain from another fall that occurred a few weeks ago. The patient was admitted for CVA workup. ED course: * Vitals on arrival: BP 157/76, pulse 86, respiratory rate 16, temp 97.9, O2 sat 90% on room air. * Imaging: Head CT was negative, head and neck CTA showed like a stenosis, distal basilar 70-80% stenosis with no LVO. EKG showed electronic ventricular pacemaker with a QTc of 472. CTA chest abdomen pelvis showed a heavily calcified LAD. Abdominal ultrasound in the ED showed a contracted bladder and a patent IVC. The liver was 12.3 cm with no focal liver lesions. * Labs: Hemoglobin 12.5, INR 1.0, blood chemistry was stable, BUN 26, creatinine 1.7, glucose 264, A1c from 02/28/2025 of 8.4, magnesium 1.5, slightly elevated AST and ALT, T. bili 1.6. Urinalysis showed proteins, glucose. Urine tox was negative. * Patient was given 0.5 L LR in the ED. He was allowed permissive hypertension with a blood pressure limit of 220/120. History: * Past medical history: Hypertension, hyperlipidemia, type 2 diabetes, pacemaker placement * Surgical history: Pacemaker placement * Social history: Denies smoking alcohol or illicit drug use * Family history: No significant family history of cerebrovascular events * Allergies: No known drug allergies * Home medications: Pending confirmation, aspirin 81 mg daily, losartan, metformin Review of Systems Review of Systems Narrative Review of Systems: Review of Systems: * General: Denies fevers, chills. * HEENT: Denies headache, congestion, or sore throat. * Cardiac: Denies chest pain or palpitations. * Pulmonary: Denies shortness of breath or cough. * GI: Denies nausea, vomiting, diarrhea, constipation, melena, or hematochezia. * : Denies dysuria, hematuria, frequency, or urgency. * MSK: Left shoulder pain, left hip and leg pain. * Neuro: Denies weakness, numbness, vision changes, or speech difficulty. Exam Vital Signs Temp Pulse Resp BP Pulse Ox O2 Del Method O2 Flow Rate 98.9 F 76 22 H 169/87 H 98 Room Air 98 04/06/25 17:44 04/06/25 18:26 04/06/25 18:26 04/06/25 18:26 04/06/25 18:26 04/06/25 18:04/06/25 13:31 Narrative Exam General: Elderly man. Patient is disoriented to time and place, slow to answer questions. Neurologic: Left-sided facial droop. Left pronator drift. Left hip flexion strength of 3 out of 5. HEENT: Normocephalic, atraumatic, mucous membranes moist. Pupils reactive to light. Heart: Regular rate and rhythm, normal S1 and S2, no murmurs. Lungs: Clear to auscultation bilaterally with no wheezing or crackles. Abdomen: Soft, nondistended, nontender, positive bowel sounds. No guarding or rebound tenderness. Extremities: No edema. 2+ radial and dorsalis pedis pulses bilaterally. Skin: Warm. Dry. No rash or ecchymoses. Results: Labs 04/07/25 05:15 04/07/25 05:15 Labs: Short CBC 04/06/25 Range/Units 12:45 WBC 9.7 (3.8-10.6) Thou/mm3 Hgb 12.5 L (13.5-16.0) g/dL Hct 35.5 L (41.0-53.0) % Plt Count 195 (140-440) Thou/mm3 BMP 04/06/25 12:45 Sodium 137 Potassium 4.4 Chloride 102 Carbon Dioxide 22.9 BUN 26 H Creatinine 1.7 H Glucose 264 H Calcium 9.3 Cardiac Enzymes 04/06/25 Range/Units 12:45 Troponin I 0.024 (0.0-0.045) ng/mL Liver Function 04/06/25 Range/Units 12:45 Total Bilirubin 1.6 H (0.3-1.2) mg/dL AST 98 H (0-34) U/L ALT 107 H (10-49) U/L Alkaline Phosphatase 350 H (46-116) U/L Albumin 4.3 (3.4-4.8) gm/dL Urine 04/06/25 Range/Units 14:02 Urine Color Lt-Yellow (Lt Yel-Yel) Urine Clarity Clear (Clear/Hazy) Urine pH 6.5 (5.0-7.0) Ur Specific [place] 1.029 (1.001-1.035) Urine Protein 1+ A (Neg - Trace) Urine Glucose (UA) 2+ A (Negative) Quality Measures Quality Measures stroke Suspected type of Stroke: Unknown at this time Tenecteplase given: Reason(s) Tenecteplase not given: Outside the time window not given Rehab services: PT evaluation ordered VTE Prophylaxis: pharmaceutical Antithrombotic by day 2:: ordered Statin ordered: >75 y/o moderate or high intensity dose Anticoagulation ordered for A-fib or flutter (current or hx): ordered Advance care planning discussed with:: patient Medications Home Medications and Allergies Home Medications ?Medication ?Instructions ?Recorded ?Confirmed ?Type metformin 1,000 mg tablet 1,000 mg PO BID 01/27/18 History atorvastatin 10 mg tablet 10 mg PO HS 04/06/25 5 History losartan 100 mg tablet 100 mg PO DAILY 04/06/25 History Allergies Allergy/AdvReac Type Severity Reaction Status Date / Time No Known Allergies Allergy Verified 04/19/23 14:39 Visit Medications Acetaminophen (Acetaminophen 325 Mg Tablet) 1,000 mg PO Q6H PRN PRN Reason: Fever >99.9 Stop: 05/06/25 17:14 Last Admin: 04/06/25 17:55 Dose: 1,000 mg Aspirin (Aspirin Ec 81 Mg Tabec) 81 mg PO DAILY GERTRUDIS Stop: 05/07/25 08:59 Atorvastatin Calcium (Atorvastatin Calcium 10 Mg Tablet) 40 mg PO HS GERTRUDIS Stop: 05/06/25 20:59 Dextrose (Dextrose 50%-Water Inj 50 Ml Syringe) 25 ml IV Q15MIN PRN PRN Reason: BG 50-70 responsive npo pt Stop: 05/06/25 18:32 Dextrose (Dextrose 50%-Water Inj 50 Ml Syringe) 50 ml IV Q15MIN PRN PRN Reason: BG <50 OR BG <70 & pt unresponsive Stop: 05/06/25 18:32 Glucagon (Glucagon Inj 1 Mg Vial) 1 mg IM Q15MIN PRN PRN Reason: BG <70, and no IV access Heparin Sodium (Porcine) (Heparin Sod Inj 5000 Unit/Ml Vial) 5,000 unit SC Q12HR GERTRUDIS Stop: 04/20/25 20:59 Insulin Human Lispro (Insulin Lispro (Admelog) 1 Unit/0.01 Ml Unit) 0 unit SC AC GERTRUDIS; Protocol Stop: 05/07/25 07:29 Labetalol HCl (Labetalol Inj 5 Mg/Ml Vial 20 Ml) 10 mg IVP X1 PRN PRN Reason: Hypertensive Emergency Pantoprazole Sodium (Pantoprazole Inj 40 Mg Vial) 40 mg IVP Q12HR GERTRUDIS Stop: 05/06/25 20:59 Discontinued Medications Albuterol/Ipratropium (Albuterol/Ipratropium (Duoneb) Rt [place] 3 Ml Nebu) 3 ml INH X1 ONE Stop: 04/06/25 12:56 Lactated Ringer's (Lactated Ringers) 500 mls @ 500 mls/hr IV .Q1H ONE Stop: 04/06/25 16:11 Last Infusion: 04/06/25 17:04 Dose: Infused Assessment & Plan Plan Summary: Mino Lofton is a 75-year-old male with a past medical history of hypertension, hyperlipidemia, type 2 diabetes, pacemaker placement who presented to the ED with left-sided weakness. He was admitted for CVA workup. #CVA Rule Out * NIHSS 4 on arrival * Patient presented greater than 4.5 hours after last known well, outside window of thrombolytics * It is difficult to determine if the patient's left pronator drift and left hip weakness is secondary to his recent falls or if there is secondary to a CVA * Patient does have left-sided facial weakness * Sensory sensation is intact bilaterally * Head neck CTA showed 40-60% stenosis in the origin of the left internal carotid, 70-80% stenosis in the distal basilar artery, no large vessel occlusions * Head CT was negative for acute hemorrhage or infarct Plan: * Neurochecks every 4 hours * MRI brain pending, has pacemaker and will need to check compatibility * Echo ordered with bubble study * Aspirin 81 mg daily * Bedside swallow eval * Permissive hypertension 220/120 first 24 hours, labetalol as needed for BP greater than this goal * Physical therapy ordered * Speech therapy ordered #Hyperlipidemia Plan: * Atorvastatin 40 mg p.o. nightly * Follow-up lipid panel #Status post pacemaker placement * Per patient history and follows with Dr. Watt Plan: * No direct intervention at this time, follow-up outpatient cardiology #Hypertension Plan: * Allowing for permissive hypertension for the first 24 hours * Holding home losartan #Lumbosacral radiculopathy * Left leg pain may be related to sciatica * Straight leg test positive on the left Plan: * MRI of the lumbar spine #Diabetes melitis type II * Patient takes metformin 1000 mg at home Plan: * Insulin sliding scale upon admission #CARMELA * Creatinine 1.7 on arrival * Given that the patient is only on losartan for his hypertension pre-med reconciliation, the culprit of his CARMELA is likely due to either hypertension or prerenal azotemia due to dehydration Plan: * Patient received fluids in the ED, will trend creatinine with morning labs, expected to improve #Transaminitis with elevated T. bili * AST 98, ALT 107, total bilirubin 1.6 * Liver ultrasound in the ED showed a contracted gallbladder Plan: * Given the patient is not experiencing any right upper quadrant pain, will consider a repeat abdominal ultrasound if the patient's transaminitis does not resolve. #Normocytic anemia * Hemoglobin 12.5 on arrival, MCV 87 * No suspicion for active bleeding at this time Plan: * Trend hemoglobin with daily labs Hospital Maintenance: DVT ppx: Heparin 5000 units every 12 hours subcutaneously GI ppx: Pantoprazole 40 mg IV every 12 hours Diet: N.p.o. IV lines: Peripheral IV Code status: Full code Dispo: Patient admitted for CVA workup. Echo pending, MRI of the brain and lumbar spine pending, initial imaging negative. Patient was seen and discussed with my attending physician Dr. Geena CLEARY and my senior resident Dr. Feliciano CLEARY PGY-2. Deon Cummings DO PGY-1. Attending Provider Attestation/Addendum I attest that I was physically present for the evaluation, physical examination, lab and imaging review of the patient with the residents. I discussed the case with the residents and agree with the findings and plans of care as documented above. After examination of the patient and review of the clinical data I feel that this patient needs admission to the hospital for further treatment/evaluation. Brandon Seay MD
[2025-04-06] MEDS: INSULIN LISPRO (AdmeLOG) 1 UNIT/0.01 ML UNIT SC (21:46)
[2025-04-06] MEDS: HEPARIN SOD INJ 5000 UNIT/ML VIAL SC (21:46)
--- NOTE | 2025-04-06 22:39 | PC.NURSE ---
REPORT WAS CALLED TO [facility]. PT TAKEN TO RM 275 ON MONITOR.
[2025-04-06] MEDS: ATORVASTATIN CALCIUM 10 MG TABLET 40 MG PO (22:56)
[2025-04-07] VITALS (8 sets, daily range): BP systolic 130–166; BP diastolic 61–75; PULSE 70–98; RESP 14–20; TEMP 35.9–36.8; O2SAT 96–98; BMI 24.1
[2025-04-07 06:04] LABS: Basophils # (Auto) 0.0 Thou/mm3 (0.0-0.2); Basophils % (Auto) 0 % (0-2.5); Eosinophils # (Auto) 0.3 Thou/mm3 (0.0-0.5); Eosinophils % (Auto) 4 % (0-10); Hematocrit 32.7 % (41.0-53.0); Hemoglobin 11.8 g/dL (13.5-16.0); Immature Granulocytes Auto 0.02 Thou/mm3 (0.00-0.00); Lymphocytes # (Auto) 1.1 Thou/mm3 (1.0-4.8); Lymphocytes % (Auto) 16 % (10-50); Mean Corpuscular HGB Conc 36.1 g/dl (31.0-37.0); Mean Corpuscular Hemoglobin 31.4 pg (25.0-35.0); Mean Corpuscular Volume 87 fL (80-100); Monocytes # (Auto) 0.8 Thou/mm3 (0.0-0.8); Monocytes % (Auto) 11 % (0-12); Neutrophils # (Auto) 4.7 Thou/mm3 (1.8-7.7); Neutrophils % (Auto) 69 % (37-80); Nucleated Red Blood Cell # 0.00 Thou/mm3 (0.00-0.00); Nucleated Red Blood Cell % 0 /100 WBC (0); Platelet Count 186 Thou/mm3 (140-440); RDW Standard Deviation 39.5 fL (35.1-43.9); Red Blood Count 3.76 Miln/mm3 (4.50-5.90); White Blood Count 6.8 Thou/mm3 (3.8-10.6)
[2025-04-07 06:40] LABS: Glucose Estimated Average 194 mg/dL (80-131); Hemoglobin A1C 8.4 % Hgb (4.8-6.0)
[2025-04-07 06:47] LABS: Alanine Aminotransferase 78 U/L (10-49); Albumin, Serum 3.9 gm/dL (3.4-4.8); Albumin/Globulin Ratio 1.4 (1.2-2.2); Alkaline Phosphatase 283 U/L (46-116); Anion Gap 12 (7-16); Aspartate Amino Transferase 60 U/L (0-34); BUN/Creatinine Ratio 15 Ratio (12-20); Bilirubin,Total 0.7 mg/dL (0.3-1.2); Blood Urea Nitrogen 32 mg/dL (9-23); Calcium 9.7 mg/dL (8.3-10.6); Calcium (Corrected) 9.8 mg/dL (8.5-10.1); Carbon Dioxide 21.2 mMol/L (20.0-31.0); Cardiac Risk Estimate 2.4 RATIO (4.0-6.7); Chloride 105 mMol/L (98-107); Cholesterol 101 mg/dL (132-200); Creatinine (Component) 2.2 mg/dL (0.6-1.3); Estimated Creatinine Clearance 21.7 mL/min (>60); Globulin 2.7 gm/dL (2.3-3.5); Glucose 154 mg/dL (74-106); HDL Cholesterol 42 mg/dL (40-60); LDL Cholesterol,Calculated 40 mg/dL (0-130); Magnesium 1.9 mg/dL (1.6-2.6); Osmolality,Calculated 285 (275-295); Phosphorous 4.3 mg/dL (2.4-5.1); Potassium 4.2 mMol/L (3.4-5.1); Sodium 138 mMol/L (136-145); Total Protein 6.6 gm/dL (5.7-8.2); Triglycerides 93 mg/dL (30-150); eGFR 30 See Note
[2025-04-07] MEDS: ASPIRIN EC 81 MG TABEC PO (09:38)
[2025-04-07] MEDS: HEPARIN SOD INJ 5000 UNIT/ML VIAL SC ×2 (09:39→22:57)
[2025-04-07] MEDS: RINGERS LACTATED 1000 ML 1,000 ML 125 ML IV (09:41)
[2025-04-07] MEDS: HYDROmorphone INJ 2 MG/ML VIAL 0.5 MG IVP (11:47)
--- NOTE | 2025-04-07 11:49 | PC.SS ---
Patient is alert/oriented. Patient is Vietnamese speaking only. 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 Patient resides alone. His sister lives next door on same property. Patient was admitted for CVA work up. Patient is ambulatory. Patient states he does not have any DME. Patient's niece, Winter, provides transportation. Patient worked with PT during assessment. Patient ambulated with FWW. PT recommends Home Health with PT and nursing. Patient will need a FWW for home. Patient PCP: [facility] with Vania Samuel NP. Last appt was last month. Patient is pending an o/p cardiology appt. Patient has a pacemaker in place. Pending an MRI today. Discharge plan is for him to return home. Alt medical decision maker: Sister, Anay Hedrick,
[2025-04-07] MEDS: INSULIN LISPRO (AdmeLOG) 1 UNIT/0.01 ML UNIT SC ×2 (11:57→17:53)
--- NOTE | 2025-04-07 11:58 | ESPR_ITS ---
Documentation for date of: 04/07/25 Subjective Subjective Interval history: No acute overnight events. Patient working with PT today and was having intense left leg pain. Pain control scale was started. Patient has no new focal neurological deficits. Still in process of determining if pacemaker is compatible with MRI machine. Patient developed an CARMELA, started fluids. Exam Vital Signs Temp Pulse Resp BP Pulse Ox O2 Del Method O2 Flow Rate 97.1 F 70 14 141/72 H 97 Room Air 98 04/07/25 11:51 04/07/25 11:51 04/07/25 11:51 04/07/25 11:51 04/07/25 11:51 04/07/25 11:51 04/06/25 13:31 Narrative Exam General: Elderly man. Neurologic: Left-sided facial droop. Left pronator drift. Left hip weakness. HEENT: Normocephalic, atraumatic, mucous membranes moist. Pupils reactive to light. Heart: Regular rate and rhythm, normal S1 and S2, no murmurs. Lungs: Clear to auscultation bilaterally with no wheezing or crackles. Abdomen: Soft, nondistended, nontender, positive bowel sounds. No guarding or rebound tenderness. Extremities: No edema. 2+ radial and dorsalis pedis pulses bilaterally. Skin: Warm. Dry. No rash or ecchymoses. Objective Labs 04/08/25 05:49 04/08/25 15:27 Labs: Laboratory Results - last 24 hr 04/06/25 04/06/25 04/06/25 12:45 13:03 14:02 WBC 9.7 RBC 4.10 L Hgb 12.5 L Hct 35.5 L MCV 87 MCH 30.5 MCHC 35.2 RDW Std Deviation 37.8 Plt Count 195 Neut % (Auto) 84 H Lymph % (Auto) 8 L [place] % (Auto) 7 Eos % (Auto) 0 Baso % (Auto) 0 Neut # (Auto) 8.2 H Lymph # (Auto) 0.8 L [place] # (Auto) 0.7 Eos # (Auto) 0.0 Baso # (Auto) 0.0 Immature Gran # (Auto) 0.04 H Absolute Nucleated RBC 0.00 Immature Gran % 0 Nucleated RBC % 0 PT 11.1 INR 1.0 APTT 27.3 Sodium 137 Potassium 4.4 Chloride 102 Carbon Dioxide 22.9 Anion Gap 12 BUN 26 H Creatinine 1.7 H Estim Creat Clear Calc Not Performed. eGFR 41 L BUN/Creatinine Ratio [address] Glu mg/dL Hemoglobin A1c Calculated Osmolality 287 Calcium 9.3 Corrected Calcium 9.3 Phosphorus Magnesium 1.5 L Total Bilirubin 1.6 H AST 98 H ALT 107 H Alkaline Phosphatase 350 H Troponin I 0.024 B-Natriuretic Peptide 152 H Total Protein 7.3 Albumin 4.3 Globulin 3.0 Albumin/Globulin Ratio 1.4 Triglycerides Cholesterol LDL Cholesterol, Calc HDL Cholesterol Cholesterol/HDL Ratio Ur Collection Type Catheter Urine Color Lt-Yellow Urine Clarity Clear Urine pH 6.5 Ur Specific [place] 1.029 Urine Protein 1+ A Urine Glucose (UA) 2+ A Urine Ketones Negative Urine Blood 3+ A Urine Nitrite Negative Urine Bilirubin Negative Urine Urobilinogen (Auto) Negative Ur Leukocyte Esterase Negative Urine RBC 2 Urine WBC < 1 Ur Squamous Epith Cells < 1 Urine Bacteria None Ur Culture Indicated? Not Indicated Urine Opiates Screen Negative Urine Fentanyl Screen Negative Ur Barbiturates Screen Negative U Amphetamin/Meth Scrn Negative U Benzodiazepines Scrn Negative U Cocaine Metab Screen Negative U Marijuana (THC) Screen Negative HCG (Qual) Negative Blood Type O Positive Antibody Screen NEGATIVE Blood Bank Wristband ID Yes 04/07/25 05:15 WBC 6.8 RBC 3.76 L Hgb 11.8 L Hct 32.7 L MCV 87 MCH 31.4 MCHC 36.1 RDW Std Deviation 39.5 Plt Count 186 Neut % (Auto) 69 Lymph % (Auto) 16 [place] % (Auto) 11 Eos % (Auto) 4 Baso % (Auto) 0 Neut # (Auto) 4.7 Lymph # (Auto) 1.1 [place] # (Auto) 0.8 Eos # (Auto) 0.3 Baso # (Auto) 0.0 Immature Gran # (Auto) 0.02 H Absolute Nucleated RBC 0.00 Immature Gran % 0 Nucleated RBC % 0 PT INR APTT Sodium 138 Potassium 4.2 Chloride 105 Carbon Dioxide 21.2 Anion Gap 12 BUN 32 H Creatinine 2.2 H D Estim Creat Clear Calc 21.7 L eGFR 30 L BUN/Creatinine Ratio 15 [address]ucose [address] Glu mg/dL 194 H Hemoglobin A1c 8.4 H Calculated Osmolality 285 Calcium 9.7 Corrected Calcium 9.8 Phosphorus 4.3 Magnesium 1.9 Total Bilirubin 0.7 D AST 60 H ALT 78 H Alkaline Phosphatase 283 H D Troponin I B-Natriuretic Peptide Total Protein 6.6 Albumin 3.9 Globulin 2.7 Albumin/Globulin Ratio 1.4 Triglycerides 93 Cholesterol 101 L LDL Cholesterol, Calc 40 HDL Cholesterol 42 Cholesterol/HDL Ratio 2.4 L Ur Collection Type Urine Color Urine Clarity Urine pH Ur Specific [place] Urine Protein Urine Glucose (UA) Urine Ketones Urine Blood Urine Nitrite Urine Bilirubin Urine Urobilinogen (Auto) Ur Leukocyte Esterase Urine RBC Urine WBC Ur Squamous Epith Cells Urine Bacteria Ur Culture Indicated? Urine Opiates Screen Urine Fentanyl Screen Ur Barbiturates Screen U Amphetamin/Meth Scrn U Benzodiazepines Scrn U Cocaine Metab Screen U Marijuana (THC) Screen HCG (Qual) Blood Type Antibody Screen Blood Bank Wristband ID Quality Measures Quality Measures VTE prophylaxis (Heparin SC ) and stroke Suspected type of Stroke: Unknown at this time Tenecteplase given: Reason(s) Tenecteplase not given: Outside the time window not given Rehab services: PT evaluation ordered and Speech Language Pathology eval ordered VTE Prophylaxis: pharmaceutical Antithrombotic by day 2:: ordered Statin ordered: >75 y/o moderate or high intensity dose Anticoagulation ordered for A-fib or flutter (current or hx): ordered Advance care planning discussed with:: patient Assessment & Plan Assessment Current Active Medications: Generic Name Dose Route Start Last Admin Trade Name Linda PRN Reason Stop Dose Admin Acetaminophen 1,000 mg 04/07/25 08:18 Acetaminophen 500 Mg Tablet PO 05/06/25 17:14 Q6H PRN Fever >99.9 Acetaminophen 1,000 mg 04/07/25 11:16 Acetaminophen 325 Mg Tablet PO 05/07/25 11:15 Q4HR PRN Pain Scale 1-3 Mild Hydrocodone Bitart/Acetaminophen 1 tab 04/07/25 11:16 Hydrocodone/Apap 5/325 Tablet PO 04/12/25 11:15 Q6HR PRN PAIN SCALE 4-6 Moderate Aspirin 81 mg 04/07/25 09:00 04/07/25 09:38 Aspirin Ec 81 Mg Tabec PO 05/07/25 08:59 81 mg DAILY GERTRUDIS Administration Atorvastatin Calcium 40 mg 04/06/25 21:00 04/06/25 22:56 Atorvastatin Calcium 10 Mg Tablet PO 05/06/25 20:59 40 mg HS GERTRUDIS Administration Dextrose 25 ml 04/06/25 18:33 Dextrose 50%-Water Inj 50 Ml Syringe IV 05/06/25 18:32 Q15MIN PRN BG 50-70 responsive npo pt Dextrose 50 ml 04/06/25 18:33 Dextrose 50%-Water Inj 50 Ml Syringe IV 05/06/25 18:32 Q15MIN PRN BG <50 OR BG <70 & pt unresponsive Glucagon 1 mg 04/06/25 18:33 Glucagon Inj 1 Mg Vial IM Q15MIN PRN BG <70, and no IV access Heparin Sodium (Porcine) 5,000 unit 04/06/25 21:00 04/07/25 09:39 Heparin Sod Inj 5000 Unit/Ml Vial SC 04/20/25 20:59 5,000 unit Q12HR GERTRUDIS Administration Hydromorphone HCl 0.5 mg 04/07/25 11:23 04/07/25 11:47 Hydromorphone Inj 2 Mg/Ml Vial IVP 04/12/25 11:22 0.5 mg Q6HR PRN Administration Pain Severe 7-10 Lactated Ringer's 1,000 mls @ 125 mls/hr 04/07/25 08:48 04/07/25 09:41 Lactated Ringers IV 04/07/25 16:47 125 mls/hr .Q8H ONE Administration Insulin Human Lispro 0 unit 04/07/25 07:30 04/07/25 07:29 Insulin Lispro (Admelog) 1 Unit/0.01 Ml Unit SC 05/07/25 07:29 Not Given ACHS GERTRUDIS Protocol Labetalol HCl 10 mg 04/06/25 20:06 Labetalol Inj 5 Mg/Ml Vial 20 Ml IVP 05/06/25 20:05 Q15MIN PRN Hypertensive Emergency Pantoprazole Sodium 40 mg 04/06/25 21:00 04/07/25 09:41 Pantoprazole Inj 40 Mg Vial IVP 05/06/25 20:59 40 mg Q12HR GERTRUDIS Administration Plan Summary: Mino Lofton is a 75-year-old male with a past medical history of hypertension, hyperlipidemia, type 2 diabetes, pacemaker placement who presented to the ED with left-sided weakness. He was admitted for CVA workup. #CVA Rule Out * NIHSS 4 on arrival * Patient presented greater than 4.5 hours after last known well, outside window of thrombolytics * It is difficult to determine if the patient's left pronator drift and left hip weakness is secondary to his recent falls or if there is secondary to a CVA * Patient does have left-sided facial weakness * Sensory sensation is intact bilaterally * Head neck CTA showed 40-60% stenosis in the origin of the left internal carotid, 70-80% stenosis in the distal basilar artery, no large vessel occlusions * Head CT was negative for acute hemorrhage or infarct Plan: * Neurochecks every 4 hours * MRI brain pending, has pacemaker and will need to check compatibility * Echo ordered with bubble study * Aspirin 81 mg daily * Permissive hypertension 220/120 first 24 hours, labetalol as needed for BP greater than this goal * Physical therapy ordered * Speech therapy ordered #Hyperlipidemia * Lipid panel negative Plan: * Atorvastatin 40 mg p.o. nightly #Status post pacemaker placement * Per patient history and follows with Dr. Watt Plan: * No direct intervention at this time, follow-up outpatient cardiology #Hypertension Plan: * Restarted home losartan #Lumbosacral radiculopathy * Left leg pain may be related to sciatica * Straight leg test positive on the left Plan: * MRI of the lumbar spine pending * Pain scale: 1000 mg acetaminophen for pain 1-3 as needed every 12, 5-325 hydrocodone-acetaminophen for pain 4-6 every 6 hours as needed, 0.5 mg Dilaudid for pain 7-10 every 6 hours as needed. #Diabetes melitis type II * Patient takes metformin 1000 mg at home Plan: * Insulin sliding scale #CARMELA * Creatinine 1.7 on arrival, leticia to 2.2 within 24 hours of admission * Given that the patient is only on losartan for his hypertension pre-med reconciliation, the culprit of his CARMELA is likely due to either hypertension or prerenal azotemia due to dehydration Plan: * 1 L of LR at 125 mL/h ordered * Renally dose medications * Hold home losartan * Follow-up creatinine level with morning labs #Transaminitis with elevated T. bili * AST 98, ALT 107, total bilirubin 1.6, trending down * Liver ultrasound in the ED showed a contracted gallbladder Plan: * Given the patient is not experiencing any right upper quadrant pain, will consider a repeat abdominal ultrasound if the patient's transaminitis does not resolve. #Normocytic anemia * Hemoglobin 12.5 on arrival, decreased to 11.8 * No suspicion for active bleeding at this time Plan: * Trend hemoglobin with daily labs Hospital Maintenance: DVT ppx: Heparin 5000 units every 12 hours subcutaneously GI ppx: Pantoprazole 40 mg IV every 12 hours Diet: N.p.o. IV lines: Peripheral IV Code status: Full code Dispo: Patient admitted for CVA workup. Echo pending, MRI of the brain and lumbar spine pending, initial CT imaging negative. Patient working with PT. No new focal neurological deficits. Started fluids for his CARMELA. Patient was seen and discussed with my attending physician Dr. Geena CLEARY. Deon Cummings DO PGY-1. Attending Provider Attestation/Addendum I attest that I was physically present for the evaluation, physical examination, lab and imaging review of the patient with the residents. I discussed the case with the residents and agree with the findings and plans of care as documented above. Brandon Seay MD
--- NOTE | 2025-04-07 15:37 | PC.SS ---
Patient needs a walker for home. The diagnosis creates mobility limitation that significantly impairs ability to participate in the patients activities of daily living either in their entirety, or in a reasonable time frame. Also the patient is able to safely use the walker and the patient?s mobility is sufficiently resolved with the use of the walker and cane has been ruled out.
--- NOTE | 2025-04-07 18:25 | XR_ITS ---
Examination: CT brain head without contrast. 2-D sagittal coronal reconstructions Date and time of exam:April 07, 2025, 1936 hrs. Indications: Onset headache today, stroke alert 04/06/2025 CTDI: vol (mGy):50.3 DLP: (mGycm):976 Technique: Multiple CT axial sections of the brain have been obtained, 5 mm slice thickness. Contrast has not been administered. 2-D sagittal, coronal reconstructions have been obtained Low dose protocols were performed. One or more of the following dose reduction techniques were used; automated exposure control, adjustment of the mA and/or KV according to patient size, use of iterative reconstruction technique. Findings: No significant ventricular enlargement. Intra-axial or extra-axial hemorrhage density is not seen. No mass effect or midline shift Basal cisterns are not remarkable. Fourth ventricle is midline. Cranial vault intact. Impression: No interval acute hemorrhage, mass effect or midline shift
--- NOTE | 2025-04-07 19:31 | PC.NURSE ---
to ct scan per marcos accompanied by and drying supervisor cooking casing.
[2025-04-07] MEDS: ATORVASTATIN CALCIUM 10 MG TABLET 40 MG PO (22:52)
--- NOTE | 2025-04-07 23:20 | PD.NEUROPROG ---
Documentation for date of: 04/07/25 Subjective Subjective Interval history: Patient was seen in telemetry today with his family at the bedside patient continued to have the left lower extremity pain especially in the proximal thigh and sciatica-like pain more so on the left than on the right. Denies any similar episodes in the past, denies any bowel or bladder control issues. Exam - Neurology Vital Signs Temp Pulse Resp BP Pulse Ox O2 Del Method O2 Flow Rate 98.3 F 75 20 166/75 H 96 Room Air 98 04/07/25 20:00 04/07/25 20:00 04/07/25 20:00 04/07/25 20:00 04/07/25 20:00 04/07/25 20:00 04/07/25 16:00 Narrative Exam GENERAL APPEARANCE: Well hydrated, well-nourished in no acute distress. HEENT: Normocephalic, atraumatic, extraocular movements intact. Pupils: Equal reacting to light and accommodation NECK: Supple, no JVD or bruits. CARDIOVASULAR: Heart: S1, S2 heard, regular without S3-S4 or murmur no rubs or gallops. LUNGS/CHEST: Clear to auscultation bilaterally. No rails, rhonchi, or wheezing. Normal inspection. ABDOMEN: Soft, nontender, with normal bowel sounds. No pulsatile masses. No rebound, rigidity, or guarding. Normal inspection and palpation. EXTREMITIES: Normal inspection and palpation. No edema, clubbing or cyanosis. SKIN: Warm and dry without rashes. Normal inspection. MUSCULOSKELETAL: No cervical, thoracic, lumbar or midline bony tenderness. Normal inspection. NEURO: Alert, awake and oriented x3. Cranial nerves: II through XII grossly intact. Speech and language: Normal with no dysarthria or dysphasia. Motor system: Tone and bulk: Normal: Strength: Moves both upper extremities equally, no pronator drift noted. Both lower extremities: Right proximally and distally 4+ to 5/5, left lower extremity: Significantly limited with range of motion secondary to pain primarily with a positive straight leg raising test. Deep tendon reflexes: 1+ bilaterally symmetrical. Plantar reflex: Downgoing bilaterally. Sensory system: Intact to all modalities of sensation bilaterally. Coordination: Intact to [id number] test bilaterally. No ataxia, no dysmetria, or dysdiadochokinesia noted. No intention tremors noted. Gait: Could not be tested.. No signs of meningeal irritation noted. PSYCHIATRIC: Normal mood and affect. Objective Labs 04/07/25 05:15 04/07/25 05:15 Labs: Laboratory Results - last 24 hr 04/07/25 05:15 WBC 6.8 RBC 3.76 L Hgb 11.8 L Hct 32.7 L MCV 87 MCH 31.4 MCHC 36.1 RDW Std Deviation 39.5 Plt Count 186 Neut % (Auto) 69 Lymph % (Auto) 16 [place] % (Auto) 11 Eos % (Auto) 4 Baso % (Auto) 0 Neut # (Auto) 4.7 Lymph # (Auto) 1.1 [place] # (Auto) 0.8 Eos # (Auto) 0.3 Baso # (Auto) 0.0 Immature Gran # (Auto) 0.02 H Absolute Nucleated RBC 0.00 Immature Gran % 0 Nucleated RBC % 0 Sodium 138 Potassium 4.2 Chloride 105 Carbon Dioxide 21.2 Anion Gap 12 BUN 32 H Creatinine 2.2 H D Estim Creat Clear Calc 21.7 L eGFR 30 L BUN/Creatinine Ratio 15 Glucose [address] Glu mg/dL 194 H Hemoglobin A1c 8.4 H Calculated Osmolality 285 Calcium 9.7 Corrected Calcium 9.8 Phosphorus 4.3 Magnesium 1.9 Total Bilirubin 0.7 D AST 60 H ALT 78 H Alkaline Phosphatase 283 H D Total Protein 6.6 Albumin 3.9 Globulin 2.7 Albumin/Globulin Ratio 1.4 Triglycerides 93 Cholesterol 101 L LDL Cholesterol, Calc 40 HDL Cholesterol 42 Cholesterol/HDL Ratio 2.4 L Assessment & Plan Assessment and plan (1) Left-sided weakness: Status: Acute Assessment and plan: With pain more so in the left lower extremity proximally with positive straight leg raising test Will go ahead and do the repeat CT head without contrast to evaluate further so we can start controlling his blood pressure Follow-up with MRI of the lumbosacral spine as it becomes available to look for structural changes to contribute to this presenting symptom. Will consider symptomatic treatment with a low-dose of gabapentin and baclofen. (2) CARMELA (acute kidney injury): Status: Acute Assessment and plan: Continue to avoid nephrotoxic agents Continue to monitor kidney function closely (3) Transaminitis: Status: Acute Assessment and plan: Liver enzymes continue to be high.
[2025-04-08] VITALS (10 sets, daily range): BP systolic 145–176; BP diastolic 63–93; PULSE 68–108; RESP 16–26; TEMP 36.2–36.9; O2SAT 96–98; BMI 24.8
[2025-04-08] MEDS: INSULIN LISPRO (AdmeLOG) 1 UNIT/0.01 ML UNIT SC ×4 (00:14→17:07)
[2025-04-08 06:23] LABS: Basophils # (Auto) 0.0 Thou/mm3 (0.0-0.2); Basophils % (Auto) 0 % (0-2.5); Eosinophils # (Auto) 0.4 Thou/mm3 (0.0-0.5); Eosinophils % (Auto) 5 % (0-10); Hematocrit 33.7 % (41.0-53.0); Hemoglobin 11.6 g/dL (13.5-16.0); Immature Granulocytes Auto 0.02 Thou/mm3 (0.00-0.00); Lymphocytes # (Auto) 1.1 Thou/mm3 (1.0-4.8); Lymphocytes % (Auto) 14 % (10-50); Mean Corpuscular HGB Conc 34.4 g/dl (31.0-37.0); Mean Corpuscular Hemoglobin 30.6 pg (25.0-35.0); Mean Corpuscular Volume 89 fL (80-100); Monocytes # (Auto) 0.8 Thou/mm3 (0.0-0.8); Monocytes % (Auto) 10 % (0-12); Neutrophils # (Auto) 5.3 Thou/mm3 (1.8-7.7); Neutrophils % (Auto) 70 % (37-80); Nucleated Red Blood Cell # 0.00 Thou/mm3 (0.00-0.00); Nucleated Red Blood Cell % 0 /100 WBC (0); Platelet Count 182 Thou/mm3 (140-440); RDW Standard Deviation 40.4 fL (35.1-43.9); Red Blood Count 3.79 Miln/mm3 (4.50-5.90); White Blood Count 7.6 Thou/mm3 (3.8-10.6)
[2025-04-08 06:59] LABS: Alanine Aminotransferase 59 U/L (10-49); Alkaline Phosphatase 247 U/L (46-116); Anion Gap 12 (7-16); BUN/Creatinine Ratio 14 Ratio (12-20); Blood Urea Nitrogen 49 mg/dL (9-23); Calcium 9.3 mg/dL (8.3-10.6); Calcium (Corrected) 9.3 mg/dL (8.5-10.1); Carbon Dioxide 20.0 mMol/L (20.0-31.0); Chloride 105 mMol/L (98-107); Creatinine (Component) 3.5 mg/dL (0.6-1.3); Estimated Creatinine Clearance 13.7 mL/min (>60); Glucose 156 mg/dL (74-106); Osmolality,Calculated 289 (275-295); Potassium 5.0 mMol/L (3.4-5.1); Sodium 137 mMol/L (136-145); eGFR 17 See Note
[2025-04-08 07:00] LABS: Aspartate Amino Transferase 39 U/L (0-34); Bilirubin,Total 0.5 mg/dL (0.3-1.2); Total Protein 7.1 gm/dL (5.7-8.2)
[2025-04-08 07:15] LABS: Albumin, Serum 4.2 gm/dL (3.4-4.8); Albumin/Globulin Ratio 1.4 (1.2-2.2); Globulin 2.9 gm/dL (2.3-3.5)
[2025-04-08] MEDS: ASPIRIN EC 81 MG TABEC PO (08:12)
[2025-04-08] MEDS: LOSARTAN POTASSIUM 25 MG TABLET 100 MG PO (08:12)
[2025-04-08] MEDS: HEPARIN SOD INJ 5000 UNIT/ML VIAL SC ×2 (08:14→22:23)
--- NOTE | 2025-04-08 09:31 | PC.SS ---
rounding note: Patient is from home and will return home. PT recommended HH and a FWW. SS ordered FWW from [facility]. [facility] accepted. Possible delivery to home by Thursday
[2025-04-08] MEDS: Magnesium Sulfate 2 GM Ivpb 2 GM/50 ML BAG IV (10:00)
--- NOTE | 2025-04-08 11:49 | ESPR_ITS ---
<Statement entered by Daniel Toure MD - 04/09/25 07:34> Patient examined and case discussed with the team including attending physician. Note reviewed, I agree with the care plan as documented. Please refer to the note below for further details. - Daniel Toure MD, PGY 3 Disclaimer: The document may contain phonetic/typographic errors due to voice recognition software. These errors are purely due to imperfections in the software program. Documentation for date of: 04/08/25 Subjective Subjective Interval history: Patient seen and examined at bedside. Patient has stage II hypertension 171/79. Creatinine 3.5 up from 2.2, BUN 49 up from 32. Hemoglobin 11.6 and stable, blood chemistry stable. Will hold losartan. Continuing fluids 75 cc/h. Will start amlodipine 10 mg p.o. nightly. Exam Vital Signs Temp Pulse Resp BP Pulse Ox O2 Del Method O2 Flow Rate 97.1 F 79 16 171/79 H 97 Room Air 98 04/08/25 08:00 04/08/25 08:12 04/08/25 08:00 04/08/25 08:12 04/08/25 08:00 04/08/25 08:00 04/07/25 16:00 Narrative Exam General: Elderly man. Neurologic: Left-sided facial droop. HEENT: Normocephalic, atraumatic, mucous membranes moist. Pupils reactive to light. Heart: Regular rate and rhythm, normal S1 and S2, no murmurs. Lungs: Clear to auscultation bilaterally with no wheezing or crackles. Abdomen: Soft, nondistended, nontender, positive bowel sounds. No guarding or rebound tenderness. Extremities: No edema. 2+ radial and dorsalis pedis pulses bilaterally. Skin: Warm. Dry. No rash or ecchymoses. Objective Labs 04/10/25 05:19 04/10/25 05:19 Labs: Laboratory Results - last 24 hr 04/08/25 05:49 WBC 7.6 RBC 3.79 L Hgb 11.6 L Hct 33.7 L MCV 89 MCH 30.6 MCHC 34.4 RDW Std Deviation 40.4 Plt Count 182 Neut % (Auto) 70 Lymph % (Auto) 14 [place] % (Auto) 10 Eos % (Auto) 5 Baso % (Auto) 0 Neut # (Auto) 5.3 Lymph # (Auto) 1.1 [place] # (Auto) 0.8 Eos # (Auto) 0.4 Baso # (Auto) 0.0 Immature Gran # (Auto) 0.02 H Absolute Nucleated RBC 0.00 Immature Gran % 0 Nucleated RBC % 0 Sodium 137 Potassium 5.0 D Chloride 105 Carbon Dioxide 20.0 Anion Gap 12 BUN 49 H Creatinine 3.5 H D Estim Creat Clear Calc 13.7 L eGFR 17 L BUN/Creatinine Ratio 14 Glucose 156 H Calculated Osmolality 289 Calcium 9.3 Corrected Calcium 9.3 Total Bilirubin 0.5 AST 39 H ALT 59 H Alkaline Phosphatase 247 H D Total Protein 7.1 Albumin 4.2 Globulin 2.9 Albumin/Globulin Ratio 1.4 Quality Measures Quality Measures VTE prophylaxis (Heparin SC ) and stroke Suspected type of Stroke: Unknown at this time Tenecteplase given: Reason(s) Tenecteplase not given: Outside the time window not given Rehab services: PT evaluation ordered and Speech Language Pathology eval ordered VTE Prophylaxis: pharmaceutical Antithrombotic by day 2:: ordered and contraindicated (describe) Statin ordered: >75 y/o moderate or high intensity dose Anticoagulation ordered for A-fib or flutter (current or hx): ordered Advance care planning discussed with:: patient Assessment & Plan Assessment Current Active Medications: Generic Name Dose Route Start Last Admin Trade Name Freq PRN Reason Stop Dose Admin Acetaminophen 1,000 mg 04/07/25 08:18 Acetaminophen 500 Mg Tablet PO 05/06/25 17:14 Q6H PRN Fever >99.9 Acetaminophen 1,000 mg 04/07/25 11:16 Acetaminophen 325 Mg Tablet PO 05/07/25 11:15 Q4HR PRN Pain Scale 1-3 Mild Hydrocodone Bitart/Acetaminophen 1 tab 04/07/25 11:16 Hydrocodone/Apap 5/325 Tablet PO 04/12/25 11:15 Q6HR PRN PAIN SCALE 4-6 Moderate Aspirin 81 mg 04/07/25 09:00 04/08/25 08:12 Aspirin Ec 81 Mg Tabec PO 05/07/25 08:59 81 mg DAILY GERTRUDIS Administration Atorvastatin Calcium 40 mg 04/06/25 21:00 04/07/25 22:52 Atorvastatin Calcium 10 Mg Tablet PO 05/06/25 20:59 40 mg HS GERTRUDIS Administration Dextrose 25 ml 04/06/25 18:33 Dextrose 50%-Water Inj 50 Ml Syringe IV 10/25/25 18:32 Q15MIN PRN BG 50-70 responsive npo pt Dextrose 50 ml 04/06/25 18:33 Dextrose 50%-Water Inj 50 Ml Syringe IV 05/06/25 18:32 Q15MIN PRN BG <50 OR BG <70 & pt unresponsive Diltiazem HCl 30 mg 04/08/25 12:00 Diltiazem 30 Mg Tablet PO 05/08/25 11:59 BID GERTRUDIS Glucagon 1 mg 04/06/25 18:33 Glucagon Inj 1 Mg Vial IM Q15MIN PRN BG <70, and no IV access Heparin Sodium (Porcine) 5,000 unit 04/06/25 21:00 04/08/25 08:14 Heparin Sod Inj 5000 Unit/Ml Vial SC 04/20/25 20:59 5,000 unit Q12HR GERTRUDIS Administration Hydromorphone HCl 0.5 mg 04/07/25 11:23 04/07/25 11:47 Hydromorphone Inj 2 Mg/Ml Vial IVP 04/12/25 11:22 0.5 mg Q6HR PRN Administration Pain Severe 7-10 Lactated Ringer's 1,000 mls @ 75 mls/hr 04/08/25 11:46 Lactated Ringers IV 04/09/25 01:05 .[id number] ONE Insulin Human Lispro 0 unit 04/07/25 07:30 04/08/25 08:14 Insulin Lispro (Admelog) 1 Unit/0.01 Ml Unit SC 05/07/25 07:29 1 unit ACHS GERTRUDIS Administration Protocol Labetalol HCl 10 mg 04/06/25 20:06 Labetalol Inj 5 Mg/Ml Vial 20 Ml IVP 05/06/25 20:05 Q15MIN PRN Hypertensive Emergency Pantoprazole Sodium 40 mg 04/06/25 21:00 04/08/25 08:14 Pantoprazole Inj 40 Mg Vial IVP 05/06/25 20:59 40 mg Q12HR GERTRUDIS Administration Plan Summary: Mino Lofton is a 75-year-old male with a past medical history of hypertension, hyperlipidemia, type 2 diabetes, pacemaker placement who presented to the ED with left-sided weakness. He was admitted for CVA workup. 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 nightly #Status post pacemaker placement * Per patient history and follows with Dr. Watt Plan: * No direct intervention at this time, follow-up outpatient cardiology # Stage II hypertension * Is outside of the permissive hypertension window for CVA * BP 171/79 morning 04/08/2025 Plan: * Holding losartan in the presence of CARMELA * Started amlodipine 10 mg p.o. at bedtime #Lumbosacral radiculopathy * Left leg pain may be related to sciatica * Straight leg test positive on the left Plan: * MRI of the lumbar spine pending * Pain scale: 1000 mg acetaminophen for pain 1-3 as needed every 12, 5-325 hydrocodone-acetaminophen for pain 4-6 every 6 hours as needed, 0.5 mg Dilaudid for pain 7-10 every 6 hours as needed. #Diabetes melitis type II * Patient takes metformin 1000 mg at home * Glucose in acceptable range Plan: * Insulin sliding scale #CARMELA * Creatinine 1.7 on arrival, leticia to 2.2 within 24 hours of admission * Creatinine 3.5 morning of 04/08/2025 * Given that the BUN to creatinine ratio is less than 20, the mechanism of kidney injury is likely within the kidney itself and not a prerenal cause * Patient is producing urine Plan: * LR at 75 mL/h * Renally dose medications * Hold home losartan * Follow-up creatinine level with morning labs #Transaminitis with elevated T. bili * AST ALT and total bilirubin trending down * Liver ultrasound in the ED showed a contracted gallbladder Plan: * Given the patient is not experiencing any right upper quadrant pain, will consider a repeat abdominal ultrasound if the patient's transaminitis does not resolve. #Normocytic anemia * Hemoglobin 11.6 and stable * No suspicion for active bleeding at this time Plan: * Trend hemoglobin with daily labs Hospital Maintenance: DVT ppx: Heparin 5000 units every 12 hours subcutaneously GI ppx: Pantoprazole 40 mg IV every 12 hours Diet: Carb consistent low IV lines: Peripheral IV Code status: Full code Dispo: Patient admitted for CVA workup. Echo pending, MRI of the brain and lumbar spine pending, initial CT imaging negative. Patient working with PT. No new focal neurological deficits. Continuing fluids for his CARMELA. Holding losartan in the presence of CARMELA, switched to amlodipine HS for hypertension. Patient was seen and discussed with my attending physician Dr. Geena CLEARY and my senior resident Dr. Mesfin CLEARY PGY-3. Deon Cummings DO PGY-1. Attending Provider Attestation/Addendum I attest that I was physically present for the evaluation, physical examination, lab and imaging review of the patient with the residents. I discussed the case with the residents and agree with the findings and plans of care as documented above. Patient seen and evaluated at bedside this morning. Appears comfortable and denies any new complaints. Continues to be on aspirin and statin. Noted to have creatinine of 3.5 this morning, has low BUN/creatinine ratio, patient underwent multiple CT angio studies, concerning for ATN/intrarenal pathology. We will start him on IV hydration and encourage oral intake and monitor kidney function closely. If does not improve, we will consider nephrology consult tomorrow. Awaiting MRI studies of head/neck and lumbosacral spine, awaiting pacemaker compatibility clearance. Brandon Seay MD
[2025-04-08] MEDS: DILTIAZEM 30 MG TABLET PO (12:03)
[2025-04-08] MEDS: RINGERS LACTATED 1000 ML 1,000 ML 75 ML IV (12:03)
[2025-04-08 15:56] LABS: Albumin, Serum 3.9 gm/dL (3.4-4.8); Anion Gap 10 (7-16); BUN/Creatinine Ratio 13 Ratio (12-20); Blood Urea Nitrogen 46 mg/dL (9-23); Calcium 8.9 mg/dL (8.3-10.6); Calcium (Corrected) 9.0 mg/dL (8.5-10.1); Carbon Dioxide 19.5 mMol/L (20.0-31.0); Chloride 106 mMol/L (98-107); Creatinine (Component) 3.6 mg/dL (0.6-1.3); Estimated Creatinine Clearance 13.3 mL/min (>60); Glucose 179 mg/dL (74-106); Osmolality,Calculated 286 (275-295); Phosphorous 3.6 mg/dL (2.4-5.1); Potassium 4.9 mMol/L (3.4-5.1); Sodium 135 mMol/L (136-145); eGFR 17 See Note
[2025-04-08] MEDS: ATORVASTATIN CALCIUM 10 MG TABLET 40 MG PO (22:23)
--- NOTE | 2025-04-08 23:53 | PD.NEUROPROG ---
Documentation for date of: 04/08/25 Subjective Subjective Interval history: Patient was seen in telemetry today with his family at the bedside patient continued to have the left lower extremity pain especially in the proximal thigh and sciatica-like pain more so on the left than on the right. However symptoms have somewhat improved since admission. Denies any similar episodes in the past, denies any bowel or bladder control issues. Exam - Neurology Vital Signs Temp Pulse Resp BP Pulse Ox O2 Del Method O2 Flow Rate 97.7 F 68 19 168/74 H 98 Room Air 98 04/08/25 20:00 04/08/25 22:23 04/08/25 20:00 04/08/25 22:23 04/08/25 20:00 04/08/25 20:00 04/07/25 16:00 Narrative Exam GENERAL APPEARANCE: Well hydrated, well-nourished in no acute distress. HEENT: Normocephalic, atraumatic, extraocular movements intact. Pupils: Equal reacting to light and accommodation NECK: Supple, no JVD or bruits. CARDIOVASULAR: Heart: S1, S2 heard, regular without S3-S4 or murmur no rubs or gallops. LUNGS/CHEST: Clear to auscultation bilaterally. No rails, rhonchi, or wheezing. Normal inspection. ABDOMEN: Soft, nontender, with normal bowel sounds. No pulsatile masses. No rebound, rigidity, or guarding. Normal inspection and palpation. EXTREMITIES: Normal inspection and palpation. No edema, clubbing or cyanosis. SKIN: Warm and dry without rashes. Normal inspection. MUSCULOSKELETAL: No cervical, thoracic, lumbar or midline bony tenderness. Normal inspection. NEURO: Alert, awake and oriented x3. Cranial nerves: II through XII grossly intact. Speech and language: Normal with no dysarthria or dysphasia. Motor system: Tone and bulk: Normal: Strength: Moves both upper extremities equally, no pronator drift noted. Both lower extremities: Right proximally and distally 4+ to 5/5, left lower extremity: Significantly limited with range of motion secondary to pain primarily with a positive straight leg raising test. Deep tendon reflexes: 1+ bilaterally symmetrical. Plantar reflex: Downgoing bilaterally. Sensory system: Intact to all modalities of sensation bilaterally. Coordination: Intact to [id number] test bilaterally. No ataxia, no dysmetria, or dysdiadochokinesia noted. No intention tremors noted. Gait: Could not be tested.. No signs of meningeal irritation noted. PSYCHIATRIC: Normal mood and affect. Objective Labs 04/08/25 05:49 04/08/25 15:27 Labs: Laboratory Results - last 24 hr 04/08/25 04/08/25 05:49 15:27 WBC 7.6 RBC 3.79 L Hgb 11.6 L Hct 33.7 L MCV 89 MCH 30.6 MCHC 34.4 RDW Std Deviation 40.4 Plt Count 182 Neut % (Auto) 70 Lymph % (Auto) 14 [place] % (Auto) 10 Eos % (Auto) 5 Baso % (Auto) 0 Neut # (Auto) 5.3 Lymph # (Auto) 1.1 [place] # (Auto) 0.8 Eos # (Auto) 0.4 Baso # (Auto) 0.0 Immature Gran # (Auto) 0.02 H Absolute Nucleated RBC 0.00 Immature Gran % 0 Nucleated RBC % 0 Sodium 137 135 L Potassium 5.0 D 4.9 Chloride 105 106 Carbon Dioxide 20.0 19.5 L Anion Gap 12 10 BUN 49 H 46 H Creatinine 3.5 H D 3.6 H Estim Creat Clear Calc 13.7 L 13.3 L eGFR 17 L 17 L BUN/Creatinine Ratio 14 13 Glucose 156 H 179 H Calculated Osmolality 289 286 Calcium 9.3 8.9 Corrected Calcium 9.3 9.0 Phosphorus 3.6 Total Bilirubin 0.5 AST 39 H ALT 59 H Alkaline Phosphatase 247 H D Total Protein 7.1 Albumin 4.2 3.9 Globulin 2.9 Albumin/Globulin Ratio 1.4 Assessment & Plan Assessment and plan (1) Left-sided weakness: Status: Acute Assessment and plan: With pain more so in the left lower extremity proximally with positive straight leg raising test Repeat CT head negative for acute intracranial abnormalities. Started aggressive blood pressure management Follow-up with MRI of the lumbosacral spine as it becomes available to look for structural changes to contribute to this presenting symptom. Will consider symptomatic treatment with a low-dose of gabapentin and baclofen. (2) CARMELA (acute kidney injury): Status: Acute Assessment and plan: Noted creatinine going up continue to avoid nephrotoxic agents Continue to monitor kidney function closely (3) Transaminitis: Status: Acute Assessment and plan: Liver enzymes continue to be high.
[2025-04-09] VITALS (7 sets, daily range): BP systolic 142–166; BP diastolic 60–84; PULSE 71–107; RESP 12–20; TEMP 36.3–36.8; O2SAT 95–97; BMI 26.3
[2025-04-09 05:19] LABS: Basophils # (Auto) 0.0 Thou/mm3 (0.0-0.2); Basophils % (Auto) 0 % (0-2.5); Eosinophils # (Auto) 0.5 Thou/mm3 (0.0-0.5); Eosinophils % (Auto) 7 % (0-10); Hematocrit 32.7 % (41.0-53.0); Hemoglobin 11.3 g/dL (13.5-16.0); Immature Granulocytes Auto 0.04 Thou/mm3 (0.00-0.00); Lymphocytes # (Auto) 1.2 Thou/mm3 (1.0-4.8); Lymphocytes % (Auto) 17 % (10-50); Mean Corpuscular HGB Conc 34.6 g/dl (31.0-37.0); Mean Corpuscular Hemoglobin 30.5 pg (25.0-35.0); Mean Corpuscular Volume 88 fL (80-100); Monocytes # (Auto) 0.7 Thou/mm3 (0.0-0.8); Monocytes % (Auto) 10 % (0-12); Neutrophils # (Auto) 4.6 Thou/mm3 (1.8-7.7); Neutrophils % (Auto) 66 % (37-80); Nucleated Red Blood Cell # 0.00 Thou/mm3 (0.00-0.00); Nucleated Red Blood Cell % 0 /100 WBC (0); Platelet Count 233 Thou/mm3 (140-440); RDW Standard Deviation 39.2 fL (35.1-43.9); Red Blood Count 3.70 Miln/mm3 (4.50-5.90); White Blood Count 7.1 Thou/mm3 (3.8-10.6)
[2025-04-09 05:54] LABS: Alanine Aminotransferase 43 U/L (10-49); Albumin, Serum 4.0 gm/dL (3.4-4.8); Albumin/Globulin Ratio 1.4 (1.2-2.2); Alkaline Phosphatase 214 U/L (46-116); Anion Gap 10 (7-16); Aspartate Amino Transferase 29 U/L (0-34); BUN/Creatinine Ratio 14 Ratio (12-20); Bilirubin,Total 0.5 mg/dL (0.3-1.2); Blood Urea Nitrogen 50 mg/dL (9-23); Calcium 9.2 mg/dL (8.3-10.6); Calcium (Corrected) 9.2 mg/dL (8.5-10.1); Carbon Dioxide 20.2 mMol/L (20.0-31.0); Chloride 107 mMol/L (98-107); Creatinine (Component) 3.5 mg/dL (0.6-1.3); Estimated Creatinine Clearance 13.7 mL/min (>60); Globulin 2.8 gm/dL (2.3-3.5); Glucose 110 mg/dL (74-106); Osmolality,Calculated 288 (275-295); Potassium 4.7 mMol/L (3.4-5.1); Sodium 137 mMol/L (136-145); Total Protein 6.8 gm/dL (5.7-8.2); eGFR 17 See Note
[2025-04-09] MEDS: ASPIRIN EC 81 MG TABEC PO (09:56)
[2025-04-09] MEDS: HEPARIN SOD INJ 5000 UNIT/ML VIAL SC ×2 (09:56→20:43)
[2025-04-09] MEDS: INSULIN LISPRO (AdmeLOG) 1 UNIT/0.01 ML UNIT SC ×3 (11:53→20:44)
--- NOTE | 2025-04-09 13:39 | PD.NEPHCONS ---
History of Present Illness Data of Consult Consult date: 04/09/25 Requesting Physician: Brandon Seay MD Primary Care Provider: Physician No Primary/Family Consult Narrative Reason for consult: CARMELA History of present illness: Mr. Aldana is a 75-year-old gentleman with past medical history significant for hypertension, dyslipidemia, diabetes, arrhythmia status post pacemaker presented to the emergency department with left-sided weakness and left facial droop. Patient a poor historian-got some information from his brother. No loss of consciousness. Patient apparently had a fall on the day of presentation due to his left leg weakness. Teleneurology was consulted. Recommended admission. CT brain negative. CTA with contrast showed distal basilar 70 to 80% stenosis. EKG showed paced rhythm. CTA chest abdomen pelvis showed LAD calcification. Liver ultrasound showed contracted gallbladder. Labs showed hemoglobin 12.5, BUN 26, creatinine 1.7 on admission. A1c 8.4. Echocardiogram showed ejection fraction 55 to 60% bubble study was negative. Creatinine elevated to 3.6 and nephrology consultation was requested. LFTs slightly elevated although improving. LDL 40. Urinalysis shows 1+ protein, 3+ blood with 2 RBCs. The patient was admitted for CVA workup. Patient currently seen in telemetry.Current medications included aspirin, Lipitor, amlodipine, lactated Ringer. cc:: cc: Brandon Seay MD Review of Systems Review of Systems Narrative Review of Systems: CONSTITUTIONAL: Patient denies any fever, chills. HEENT: Denies any visual disturbances or hearing problems. CARDIOVASCULAR: Patient denies any chest pain, shortness of breath, swelling in the lower extremities. PULMONARY: Patient denies any shortness of breath, cough. GASTROINTESTINAL: Patient denies any abdominal pain, constipation, nausea, vomiting, diarrhea. GENITOURINARY: Patient denies any urinary symptoms of burning or frequency or hematuria, denies any form in the urine. SKIN: Denies any rash. MUSCULOSKELETAL: Denies any muscular skeletal problems of joint pains. NEUROLOGICAL: Mild weakness of the left side. denies any memory problems. PSYCHIATRIC: Denies any depression or anxiety. LYMPHATICS : No lymphadenopathy Past Medical History Past Medical History NEUROLOGIC: Negative Neurological Disorders or Seizures CARDIAC: Positive Cardiac Disorders (pacemaker), Hypercholesterolemia and Hypertension; Negative Cardiac Arrhythmia, Atrial Fibrillation, Angina, Atherosclerotic Heart Disease, Aneurysm or Congestive Heart Failure RESPIRATORY: Negative Respiratory Disorders, Chronic Obstructive Pulmonary Disease (COPD) or Asthma GASTROINTESTINAL: Negative Gastrointestinal Disorders GENITOURINARY: Negative Renal Disease MUSCULOSKELETAL: Positive Musculoskeletal Disorders (left shoulder , left leg pain) and Fractures ENDOCRINE: Positive Diabetes Mellitus Type 2; Negative Diabetes Mellitus Type 1 HEMATOLOGIC: Negative Sickle Cell Disease OTHER HISTORY: Negative Blood Transfusions, Blood Transfusion Reaction, Anesthesia Reactions, MRSA, Clostridium Difficile or Cancer Family History FAMILY HISTORY: Negative Family Cardiac Disorders Surgical History SURGICAL: Positive Pacemaker; Negative Thyroidectomy or Abdominal Surgery Social History SMOKING STATUS: Never smoker SUBSTANCE USE: does not use Meds Home Medications and Allergies Home Medications ?Medication ?Instructions ?Recorded ?Confirmed ?Type metformin 1,000 mg tablet 1,000 mg PO BID 01/27/18 04/06/25 History atorvastatin 10 mg tablet 10 mg PO HS 04/06/25 04/06/25 History losartan 100 mg tablet 100 mg PO DAILY 04/06/25 04/06/25 History Allergies Allergy/AdvReac Type Severity Reaction Status Date / Time No Known Allergies Allergy Verified 04/19/23 14:39 Exam Vital Signs Temp Pulse Resp BP Pulse Ox O2 Del Method O2 Flow Rate 36.3 C 87 18 158/73 H 97 Room Air 98 04/09/25 12:00 04/09/25 12:00 04/09/25 12:00 04/09/25 12:00 04/09/25 12:00 04/09/25 12:00 04/07/25 16:00 Narrative Exam GENERAL APPEARANCE: Patient seems to be comfortable, adequately hydrated and nourished. HEENT: EOMI, PERRLA NECK: Neck supple, no JVD or bruit CARDIOVASCULAR: Heart regular, no murmurs LUNGS/CHEST: Chest clear to auscultation. No rales, rhonchi, wheezing ABDOMEN: Soft, nontender, nondistended. No masses. Normal bowel sounds. EXTREMITIES: No edema, clubbing or cyanosis. SKIN: Skin exam normal without any rashes MUSCULOSKELETAL: Musculoskeletal exam normal PSYCHIATRIC: Normal mood, affect LYMPHATICS: No lymphadenopathy noted NEUROLOGICAL : Able to move all his extremities. Tad weakness noted in the left upper extremity Results Labs 04/09/25 04:45 04/09/25 04:45 Labs: Short CBC 04/09/25 Range/Units 04:45 WBC 7.1 (3.8-10.6) Thou/mm3 Hgb 11.3 L (13.5-16.0) g/dL Hct 32.7 L (41.0-53.0) % Plt Count 233 D (140-440) Thou/mm3 BMP 04/08/25 04/09/25 15:27 04:45 Sodium 135 L 137 Potassium 4.9 4.7 Chloride 106 107 Carbon Dioxide 19.5 L 20.2 BUN 46 H 50 H Creatinine 3.6 H 3.5 H Glucose 179 H 110 H D Calcium 8.9 9.2 Liver Function 04/08/25 04/09/25 Range/Units 15:27 04:45 Total Bilirubin 0.5 (0.3-1.2) mg/dL AST 29 (0-34) U/L ALT 43 (10-49) U/L Alkaline Phosphatase 214 H D (46-116) U/L Albumin 3.9 4.0 (3.4-4.8) gm/dL Assessment & Plan Assessment and plan (1) CARMELA (acute kidney injury): Status: Acute Assessment and plan: Acute renal failure-most likely related to prerenal azotemia//worsening renal function during admission from contrast nephropathy. Admission creatinine 1.7-leticia within 24 hours postcontrast. Of note urinalysis shows significant blood with 2 RBCs. Will check CK to rule out rhabdo from the fall. Renal ultrasound ordered. CT abdomen showed no hydronephrosis. Agree with holding off on losartan, metformin for now. Agree with IV fluids. Avoid nephrotoxics. (2) Left-sided weakness: Status: Acute Assessment and plan: No evidence of stroke on CTA/CT. On aspirin, statin. (3) Transaminitis: Status: Acute Assessment and plan: Mild elevation in LFTs noted. Improving (4) Diabetes: Status: Acute Assessment and plan: Accu-Chek, sliding scale. Hold metformin (5) HTN (hypertension), benign: Status: Acute Assessment and plan: Blood pressure seems to be acceptable Hold losartan. Add amlodipine (6) Hyperlipidemia: Status: Acute Assessment and plan: On Lipitor Additional Assessment & Plan Additional Plan: Thank you Brandon for allowing me to participate in the care of Mr. Herzog
--- NOTE | 2025-04-09 14:31 | ESPR_ITS ---
<Statement entered by Daniel Toure MD - 04/10/25 07:25> Patient examined and case discussed with the team including attending physician. Note reviewed, I agree with the care plan as documented. Please refer to the note below for further details. - Daniel Toure MD, PGY 3 Disclaimer: The document may contain phonetic/typographic errors due to voice recognition software. These errors are purely due to imperfections in the software program. Documentation for date of: 04/09/25 Subjective Subjective Interval history: Patient seen and examined at bedside. Hemoglobin 11.3 and stable, blood chemistry stable, creatinine 3.5, BUN 50, had both been stable.? AST and ALT resolved, alk phos slowly resolving to 14. Vitals significant for stage II hypertension 142/74, tachycardic pulse 107, satting at 96% on room air. Will consult neurology in the presence of nonresolving creatinine. Still in the process of determining if the patient's pacemaker is safe for MRI. Exam Vital Signs Temp Pulse Resp BP Pulse Ox O2 Del Method O2 Flow Rate 97.3 F 87 18 158/73 H 97 Room Air 98 04/09/25 12:00 04/09/25 12:00 04/09/25 12:00 04/09/25 12:00 04/09/25 12:00 04/09/25 12:00 04/07/25 16:00 Narrative Exam General: Elderly man. Neurologic: Left-sided facial droop. 3 out of 5 strength in the left upper extremity, 3 out of 5 strength in the left lower extremity. HEENT: Normocephalic, atraumatic, mucous membranes moist. Pupils reactive to light. Heart: Regular rate and rhythm, normal S1 and S2, no murmurs. Lungs: Clear to auscultation bilaterally with no wheezing or crackles. Abdomen: Soft, nondistended, nontender, positive bowel sounds. No guarding or rebound tenderness. Extremities: No edema. 2+ radial and dorsalis pedis pulses bilaterally. Skin: Warm. Dry. No rash or ecchymoses. Objective Labs 04/10/25 05:19 04/10/25 05:19 Labs: Laboratory Results - last 24 hr 04/08/25 04/09/25 15:27 04:45 WBC 7.1 RBC 3.70 L Hgb 11.3 L Hct 32.7 L MCV 88 MCH 30.5 MCHC 34.6 RDW Std Deviation 39.2 Plt Count 233 D Neut % (Auto) 66 Lymph % (Auto) 17 [place] % (Auto) 10 Eos % (Auto) 7 Baso % (Auto) 0 Neut # (Auto) 4.6 Lymph # (Auto) 1.2 [place] # (Auto) 0.7 Eos # (Auto) 0.5 Baso # (Auto) 0.0 Immature Gran # (Auto) 0.04 H Absolute Nucleated RBC 0.00 Immature Gran % 1 H Nucleated RBC % 0 Sodium 135 L 137 Potassium 4.9 4.7 Chloride 106 107 Carbon Dioxide 19.5 L 20.2 Anion Gap 10 10 BUN 46 H 50 H Creatinine 3.6 H 3.5 H Estim Creat Clear Calc 13.3 L 13.7 L eGFR 17 L 17 L BUN/Creatinine Ratio 13 14 Glucose 179 H 110 H D Calculated Osmolality 286 288 Calcium 8.9 9.2 Corrected Calcium 9.0 9.2 Phosphorus 3.6 Total Bilirubin 0.5 AST 29 ALT 43 Alkaline Phosphatase 214 H D Total Protein 6.8 Albumin 3.9 4.0 Globulin 2.8 Albumin/Globulin Ratio 1.4 Quality Measures Quality Measures VTE prophylaxis (Heparin SC ) and stroke Suspected type of Stroke: Unknown at this time Tenecteplase given: Reason(s) Tenecteplase not given: Outside the time window not given Rehab services: PT evaluation ordered VTE Prophylaxis: pharmaceutical Antithrombotic by day 2:: ordered Statin ordered: >75 y/o moderate or high intensity dose Anticoagulation ordered for A-fib or flutter (current or hx): ordered Advance care planning discussed with:: patient Assessment & Plan Assessment Current Active Medications: Generic Name Dose Route Start Last Admin Trade Name Freq PRN Reason Stop Dose Admin Acetaminophen 1,000 mg 04/07/25 08:18 Acetaminophen 500 Mg Tablet PO 05/06/25 17:14 Q6H PRN Fever >99.9 Acetaminophen 1,000 mg 04/07/25 11:16 Acetaminophen 325 Mg Tablet PO 05/07/25 11:15 Q4HR PRN Pain Scale 1-3 Mild Hydrocodone Bitart/Acetaminophen 1 tab 04/07/25 11:16 Hydrocodone/Apap 5/325 Tablet PO 04/12/25 11:15 Q6HR PRN PAIN SCALE 4-6 Moderate Amlodipine Besylate 10 mg 04/08/25 21:00 04/08/25 22:23 Amlodipine Besylate 5 Mg Tablet PO 05/08/25 20:59 10 mg HS GERTRUDIS Administration Aspirin 81 mg 04/07/25 09:00 04/09/25 09:56 Aspirin Ec 81 Mg Tabec PO 05/07/25 08:59 81 mg DAILY GERTRUDIS Administration Atorvastatin Calcium 40 mg 04/06/25 21:00 04/08/25 22:23 Atorvastatin Calcium 10 Mg Tablet PO 05/06/25 20:59 40 mg HS GERTRUDIS Administration Dextrose 25 ml 04/06/25 18:33 Dextrose 50%-Water Inj 50 Ml Syringe IV 05/06/25 18:32 Q15MIN PRN BG 50-70 responsive npo pt Dextrose 50 ml 04/06/25 18:33 Dextrose 50%-Water Inj 50 Ml Syringe IV 05/06/25 18:32 Q15MIN PRN BG <50 OR BG <70 & pt unresponsive Glucagon 1 mg 04/06/25 18:33 Glucagon Inj 1 Mg Vial IM Q15MIN PRN BG <70, and no IV access Heparin Sodium (Porcine) 5,000 unit 04/06/25 21:00 04/09/25 09:56 Heparin Sod Inj 5000 Unit/Ml Vial SC 04/20/25 20:59 5,000 unit Q12HR GERTRUDIS Administration Hydromorphone HCl 0.5 mg 04/07/25 11:23 04/07/25 11:47 Hydromorphone Inj 2 Mg/Ml Vial IVP 04/12/25 11:22 0.5 mg Q6HR PRN Administration Pain Severe 7-10 Insulin Human Lispro 0 unit 04/07/25 07:30 04/09/25 11:53 Insulin Lispro (Admelog) 1 Unit/0.01 Ml Unit SC 05/07/25 07:29 2 unit ACHS GERTRUDIS Administration Protocol Pantoprazole Sodium 40 mg 04/06/25 21:00 04/09/25 09:56 Pantoprazole Inj 40 Mg Vial IVP 05/06/25 20:59 40 mg Q12HR GERTRUDIS Administration Plan Summary: Mino Lofton is a 75-year-old male with a past medical history of hypertension, hyperlipidemia, type 2 diabetes, pacemaker placement who presented to the ED with left-sided weakness. He was admitted for CVA workup. 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 Aortic valve stenosis.? Plan: * Neurochecks every 4 hours * MRI brain pending, has pacemaker and will need to check compatibility * Aspirin 81 mg daily * Physical therapy ordered * Speech therapy ordered #CARMELA * Creatinine 1.7 on arrival, leticia to 2.2 within 24 hours of admission * Creatinine 3.5 morning of 04/08/2025 * Creatinine remains elevated at 3.5 on 04/09/2025 * Patient did have a head and neck CT angiogram and chest abdomen pelvis CT angiogram the day of admission, consider contrast-induced kidney injury however it has been roughly 72 hours since contrast has been administered. * Given that the BUN to creatinine ratio is less than 20, the mechanism of kidney injury is likely within the kidney itself and not a prerenal cause * Patient is producing urine Plan: * Nephrology consult * LR at 75 mL/h * Renally dose medications * Hold home losartan * Trend creatinine #Hyperlipidemia * Lipid panel negative Plan: * Atorvastatin 40 mg p.o. nightly #Status post pacemaker placement * Per patient history and follows with Dr. Watt Plan: * No direct intervention at this time, follow-up outpatient cardiology # Stage II hypertension * Is outside of the permissive hypertension window for CVA Plan: * Holding losartan in the presence of CARMELA * Started amlodipine 10 mg p.o. at bedtime #Lumbosacral radiculopathy * Left leg pain may be related to sciatica * Straight leg test positive on the left Plan: * MRI of the lumbar spine pending * Pain scale: 1000 mg acetaminophen for pain 1-3 as needed every 12, 5-325 hydrocodone-acetaminophen for pain 4-6 every 6 hours as needed, 0.5 mg Dilaudid for pain 7-10 every 6 hours as needed. #Diabetes melitis type II * Patient takes metformin 1000 mg at home * Glucose in acceptable range Plan: * Insulin sliding scale #Transaminitis with elevated T. bili (Resolved) * Liver ultrasound in the ED showed a contracted gallbladder #Normocytic anemia * Hemoglobin 11.3 and stable * No suspicion for active bleeding at this time Plan: * Trend hemoglobin with daily labs Hospital Maintenance: DVT ppx: Heparin 5000 units every 12 hours subcutaneously Diet: Carb consistent low IV lines: Peripheral IV Code status: Full code Dispo: Patient admitted for CVA workup. MRI of the brain and lumbar spine pending, initial CT imaging negative. Patient working with PT. No new focal neurological deficits. Continuing fluids for his CARMELA. Holding losartan in the presence of CARMELA, switched to amlodipine HS for hypertension. Nephrology consulted due to consistently elevated creatinine. Patient was seen and discussed with my attending physician Dr. Geena CLEARY and my senior resident Dr. Mesfin CLEARY PGY-3. Deon Cummings DO PGY-1. Attending Provider Attestation/Addendum I attest that I was physically present for the evaluation, physical examination, lab and imaging review of the patient with the residents. I discussed the case with the residents and agree with the findings and plans of care as documented above. Brandon Seay MD
[2025-04-09] MEDS: RINGERS LACTATED 1000 ML 1,000 ML 75 ML IV (15:34)
--- NOTE | 2025-04-09 19:17 | XR_ITS ---
Examination: Retroperitoneal ultrasound, complete Technique: Multiple high resolution grayscale images of the retroperitoneum obtained, including kidneys and bladder. Exam date and time:April 09, 2025 2137 hrs. Indications: Acute renal insufficiency on laboratory examination today Findings: Right kidney 9.9 cm renal cortex 1.0 cm Left kidney 10.1 cm cortex 1.1 cm Bilateral renal parenchymal scar formation No hydronephrosis No bladder mass or bladder calculi, bladder prevoid volume 281 cc Prostate 5.2 x 5.7 x 6.0 cm no prostate nodules Impression: Bilateral renal cortical thinning Moderate bilateral renal parenchymal scar formation Moderate prostatomegaly no prostate nodules
--- NOTE | 2025-04-09 19:45 | XR_ITS ---
Examination: Venous duplex lower extremity sonogram, bilateral. Date and time of exam: April 09, 2025, 2152 hrs. Indications: Arm swelling and pain this week Technique: Multiple sonographic images of the deep venous system have been obtained. B-mode/2-D grayscale imaging of vascular structures and Doppler spectral analysis (waveforms) and color performed Both legs are examined. Findings: Deep venous systems do not demonstrate abnormal echogenicity. All visualized deep veins exhibit compressibility. All visualized deep veins exhibit augmentation. Impression: Negative for deep vein thrombosis
[2025-04-09] MEDS: ATORVASTATIN CALCIUM 10 MG TABLET 40 MG PO (20:34)
[2025-04-09 21:28] LABS: Creatinine,Random Urine 42 mg/dL (30-125); Protein Total, Random Urine 61 mg/dL (1-14)
--- NOTE | 2025-04-09 23:09 | VVPN_ITS ---
Telemedicine visit statement This visit was conducted with the use of interactive audio and video telecommunications system that permits real time communication between the patient and the provider. Patient's verbal consent for virtual visit was obtained on 04/09/25 at 2309. Documentation for date of: 04/09/25 Subjective Subjective Interval history: Patient is in telemetry. His left lower extremity pain has improved. No new symptoms reported. Virtual exam Vital Signs Temp Pulse Resp BP Pulse Ox O2 Del Method O2 Flow Rate 97.9 F 76 12 166/67 H 97 Room Air 98 04/09/25 20:00 04/09/25 20:35 04/09/25 20:00 04/09/25 20:35 04/09/25 20:00 04/09/25 20:00 04/07/25 16:00 Objective Labs 04/09/25 04:45 04/09/25 04:45 Labs: Laboratory Results - last 24 hr 04/09/25 04/09/25 04:45 20:49 WBC 7.1 RBC 3.70 L Hgb 11.3 L Hct 32.7 L MCV 88 MCH 30.5 MCHC 34.6 RDW Std Deviation 39.2 Plt Count 233 D Neut % (Auto) 66 Lymph % (Auto) 17 [place] % (Auto) 10 Eos % (Auto) 7 Baso % (Auto) 0 Neut # (Auto) 4.6 Lymph # (Auto) 1.2 [place] # (Auto) 0.7 Eos # (Auto) 0.5 Baso # (Auto) 0.0 Immature Gran # (Auto) 0.04 H Absolute Nucleated RBC 0.00 Immature Gran % 1 H Nucleated RBC % 0 Sodium 137 Potassium 4.7 Chloride 107 Carbon Dioxide 20.2 Anion Gap 10 BUN 50 H Creatinine 3.5 H Estim Creat Clear Calc 13.7 L eGFR 17 L BUN/Creatinine Ratio 14 Glucose 110 H D Calculated Osmolality 288 Calcium 9.2 Corrected Calcium 9.2 Total Bilirubin 0.5 AST 29 ALT 43 Alkaline Phosphatase 214 H D Total Protein 6.8 Albumin 4.0 Globulin 2.8 Albumin/Globulin Ratio 1.4 Ur Random Creatinine 42 U Random Total Protein 61 H Assessment & Plan Problem List (1) Left-sided weakness: Status: Acute Assessment and plan: With the significant pain/radiculopathy Follow-up with MRI brain/MRI of the lumbosacral spine to evaluate further. Repeat CT head did not show any acute intracranial abnormalities. Continue with symptomatic therapy and physical therapy as he tolerates. (2) Diabetes: Status: Chronic Assessment and plan: Getting fingerstick glucose checked and follow sliding scale insulin per protocol (3) HTN (hypertension), benign: Status: Chronic Assessment and plan: Continue with current blood pressure medications avoiding nephrotoxic agents (4) Hyperlipidemia: Status: Chronic Assessment and plan: Continue with statin (5) CARMELA (acute kidney injury): Status: Acute Assessment and plan: Nephrology has been on board.
[2025-04-10 00:37] VITALS: BP 163/65; PULSE 77; PULSE 78; RESP 16; TEMP 36.3; O2SAT 97
[2025-04-10 04:00] VITALS: BP 163/73; PULSE 72; PULSE 75; RESP 15; TEMP 36.3; O2SAT 99
[2025-04-10] MEDS: RINGERS LACTATED 1000 ML 1,000 ML 75 ML IV (05:00)
--- NOTE | 2025-04-10 05:09 | ESPR_ITS ---
Documentation for date of: 04/10/25 Subjective Subjective Interval history: History of Present Illness: 75 y/o with PMH of hypertension, dyslipidemia, diabetes, arrhythmia status post pacemaker presented to the hospital on 04/06/2025 due to left-sided weakness and left-sided facial droop. Per Hospitalist team note, patient?s niece noted that patient fell because of left leg weakness before coming to the hospital. Did not lost consciousness after the fall, but seems to not remember the fall. Patient had experienced another fall few weeks ago from which he complained of left shoulder pain. The patient was admitted for CVA workup Nephrology has been consulted for management of CARMELA ED course: CT brain negative. CTA with contrast showed distal basilar 70 to 80% stenosis. EKG showed paced rhythm. CTA chest abdomen pelvis showed LAD calcification. Liver ultrasound showed contracted gallbladder. Labs showed hemoglobin 12.5, BUN 26, creatinine 1.7 on admission. A1c 8.4. Echocardiogram showed ejection fraction 55 to 60% bubble study was negative. Creatinine elevated to 3.6 and nephrology consultation was requested. LFTs slightly elevated although improving. LDL 40. Urinalysis shows 1+ protein, 3+ blood with 2 RBCs. 04/10/2025: Labs reviewed and patient examined at the bedside. BUN:32, Cr:2.4, eGFR:27, CK:338. No other major complaints. Currently on LR 75 ml/hr 1L IVF. Will continue to monitor. Exam Vital Signs Temp Pulse Resp BP Pulse Ox O2 Del Method O2 Flow Rate 97.4 F 75 15 163/73 H 99 Room Air 98 04/10/25 04:00 04/10/25 04:00 04/10/25 04:00 04/10/25 04:00 04/10/25 04:00 04/10/25 04:00 04/07/25 16:00 Narrative Exam General: Elderly, well nourished, AAO x3 Eye: Normal conjunctiva, no scleral icterus HENT: Normocephalic, atraumatic, hearing intact to conversation at normal volume, moist oral mucosa Neck: Supple, non-tender, no JVD, no lymphadenopathy Lungs: Non-labored respirations, symmetric chest rise, Clear to auscultate bilaterally, No wheezing, rhonchi, crackles Heart: Peripheral pulses intact bilaterally, Regular Rate and Rhythm. Abdomen: Soft, non-tender, non-distended, no palpable masses Musculoskeletal: Normal range of motion and strength, No cyanosis or edema, No visible joint swelling Skin: Skin is warm, dry, no rashes or lesions. Psychiatric: Cooperative, appropriate mood and affect, Awake and alert, not agitated Neuro:Sensations intact to light touch. Left side facial droop. Objective Labs 04/10/25 05:19 04/10/25 05:19 Labs: Laboratory Results - last 24 hr 04/09/25 04/09/25 04:45 20:49 WBC 7.1 RBC 3.70 L Hgb 11.3 L Hct 32.7 L MCV 88 MCH 30.5 MCHC 34.6 RDW Std Deviation 39.2 Plt Count 233 D Neut % (Auto) 66 Lymph % (Auto) 17 [place] % (Auto) 10 Eos % (Auto) 7 Baso % (Auto) 0 Neut # (Auto) 4.6 Lymph # (Auto) 1.2 [place] # (Auto) 0.7 Eos # (Auto) 0.5 Baso # (Auto) 0.0 Immature Gran # (Auto) 0.04 H Absolute Nucleated RBC 0.00 Immature Gran % 1 H Nucleated RBC % 0 Sodium 137 Potassium 4.7 Chloride 107 Carbon Dioxide 20.2 Anion Gap 10 BUN 50 H Creatinine 3.5 H Estim Creat Clear Calc 13.7 L eGFR 17 L BUN/Creatinine Ratio 14 Glucose 110 H D Calculated Osmolality 288 Calcium 9.2 Corrected Calcium 9.2 Total Bilirubin 0.5 AST 29 ALT 43 Alkaline Phosphatase 214 H D Total Protein 6.8 Albumin 4.0 Globulin 2.8 Albumin/Globulin Ratio 1.4 Ur Random Creatinine 42 U Random Total Protein 61 H Quality Measures Quality Measures VTE prophylaxis (Heparin SC ) and stroke Suspected type of Stroke: Unknown at this time Tenecteplase given: Reason(s) Tenecteplase not given: Outside the time window not given Rehab services: PT evaluation ordered VTE Prophylaxis: pharmaceutical Antithrombotic by day 2:: ordered Statin ordered: >75 y/o moderate or high intensity dose Anticoagulation ordered for A-fib or flutter (current or hx): ordered Advance care planning discussed with:: patient Assessment & Plan Assessment Current Active Medications: Generic Name Dose Route Start Last Admin Trade Name Freq PRN Reason Stop Dose Admin Acetaminophen 1,000 mg 04/07/25 08:18 Acetaminophen 500 Mg Tablet PO 05/06/25 17:14 Q6H PRN Fever >99.9 Acetaminophen 1,000 mg 04/07/25 11:16 Acetaminophen 325 Mg Tablet PO 05/07/25 11:15 Q4HR PRN Pain Scale 1-3 Mild Hydrocodone Bitart/Acetaminophen 1 tab 04/07/25 11:16 Hydrocodone/Apap 5/325 Tablet PO 04/12/25 11:15 Q6HR PRN PAIN SCALE 4-6 Moderate Amlodipine Besylate 10 mg 04/08/25 21:00 04/09/25 20:35 Amlodipine Besylate 5 Mg Tablet PO 05/08/25 20:59 10 mg HS GERTRUDIS Administration Aspirin 81 mg 04/07/25 09:00 04/09/25 09:56 Aspirin Ec 81 Mg Tabec PO 05/07/25 08:59 81 mg DAILY GERTRUDIS Administration Atorvastatin Calcium 40 mg 04/06/25 21:00 04/09/25 20:34 Atorvastatin Calcium 10 Mg Tablet PO 05/06/25 20:59 40 mg HS GERTRUDIS Administration Dextrose 25 ml 04/06/25 18:33 Dextrose 50%-Water Inj 50 Ml Syringe IV 05/06/25 18:32 Q15MIN PRN BG 50-70 responsive npo pt Dextrose 50 ml 04/06/25 18:33 Dextrose 50%-Water Inj 50 Ml Syringe IV 05/06/25 18:32 Q15MIN PRN BG <50 OR BG <70 & pt unresponsive Glucagon 1 mg 04/06/25 18:33 Glucagon Inj 1 Mg Vial IM Q15MIN PRN BG <70, and no IV access Heparin Sodium (Porcine) 5,000 unit 04/06/25 21:00 04/09/25 20:43 Heparin Sod Inj 5000 Unit/Ml Vial SC 04/20/25 20:59 5,000 unit Q12HR GERTRUDIS Administration Hydromorphone HCl 0.5 mg 04/07/25 11:23 04/07/25 11:47 Hydromorphone Inj 2 Mg/Ml Vial IVP 04/12/25 11:22 0.5 mg Q6HR PRN Administration Pain Severe 7-10 Lactated Ringer's 1,000 mls @ 75 mls/hr 04/09/25 15:24 04/10/25 05:00 Lactated Ringers IV 05/09/25 15:23 75 mls/hr .[id number] GERTRUDIS Administration Insulin Human Lispro 0 unit 04/07/25 07:30 04/09/25 20:44 Insulin Lispro (Admelog) 1 Unit/0.01 Ml Unit SC 05/07/25 07:29 1 unit ACHS GERTRUDIS Administration Protocol Plan 75 y/o with PMH of hypertension, dyslipidemia, diabetes, arrhythmia status post pacemaker presented to the hospital on 04/06/2025 due to left-sided weakness and left-sided facial droop.The patient was admitted for CVA workup. Nephrology has been consulted for management of CARMELA. #CARMELA -On Admission, BUN: 26, Cr: 1.7 (baseline 1.2), eGFR:41 (baseline >60) -Ddx includes Pre-renal azeotemia due to dehydration VS ATN 2/2 Rhabdomyolysis caused by fall VS Contrast induced nephropathy. -UA (04/06/2025): Urine Protein 1+, Urine Glucose 2+, Urine Blood 3+, Urine Bacteria: none -Renal US (04/09/2025): Bilateral renal cortical thinning, Moderate bilateral renal parenchymal scar formation, Moderate prostatomegaly no prostate nodules, No hydronephrosis -CTAP (04/06/2025): No renal or ureteral calculi, no hydronephrosis, Moderate renal parenchymal scar formation, Normal appendix, No bowel obstruction or diverticulitis -CK:338 Plan: -1 L IV LR 75ml/hr maintenance fluid -Avoid nephrotoxins -Renally dose medication -CTM electrolyte level #CVA Rule Out #Hyperlipidemia #Status post pacemaker placement # Stage II hypertension #Lumbosacral radiculopathy #Diabetes melitis type II #Transaminitis with elevated T. bili (Resolved) #Normocytic anemia -Management per Primary Hospitalist team Thank you for allowing us to participate in the care of your patient. Assessment and plan discussed with my attending physician Dr. Bouchra Prabhakar (PGY-1)- Internal medicine resident Attending Provider Attestation/Addendum Patient seen and examined with resident physician Dr. Prabhakar. Note reviewed, agree with findings and recommendations. CARMELA (acute kidney injury): Acute renal failure-most likely related to prerenal azotemia//worsening renal function during admission from contrast nephropathy. Admission creatinine 1.7-leticia within 24 hours postcontrast. Of note urinalysis shows significant blood with 2 RBCs. Will check CK to rule out rhabdo from the fall. Renal ultrasound ordered. CT abdomen showed no hydronephrosis. Agree with holding off on losartan, metformin for now. Agree with IV fluids. Avoid nephrotoxics. Creatinine tad better today.
[2025-04-10 05:43] LABS: Basophils # (Auto) 0.0 Thou/mm3 (0.0-0.2); Basophils % (Auto) 0 % (0-2.5); Eosinophils # (Auto) 0.5 Thou/mm3 (0.0-0.5); Eosinophils % (Auto) 7 % (0-10); Hematocrit 33.1 % (41.0-53.0); Hemoglobin 11.6 g/dL (13.5-16.0); Immature Granulocytes Auto 0.03 Thou/mm3 (0.00-0.00); Lymphocytes # (Auto) 1.2 Thou/mm3 (1.0-4.8); Lymphocytes % (Auto) 17 % (10-50); Mean Corpuscular HGB Conc 35.0 g/dl (31.0-37.0); Mean Corpuscular Hemoglobin 30.9 pg (25.0-35.0); Mean Corpuscular Volume 88 fL (80-100); Monocytes # (Auto) 0.7 Thou/mm3 (0.0-0.8); Monocytes % (Auto) 10 % (0-12); Neutrophils # (Auto) 4.6 Thou/mm3 (1.8-7.7); Neutrophils % (Auto) 65 % (37-80); Nucleated Red Blood Cell # 0.00 Thou/mm3 (0.00-0.00); Nucleated Red Blood Cell % 0 /100 WBC (0); Platelet Count 244 Thou/mm3 (140-440); RDW Standard Deviation 39.3 fL (35.1-43.9); Red Blood Count 3.76 Miln/mm3 (4.50-5.90); White Blood Count 7.0 Thou/mm3 (3.8-10.6)
[2025-04-10 06:00] VITALS: BMI 26.2
[2025-04-10 06:04] LABS: Alanine Aminotransferase 59 U/L (10-49); Albumin, Serum 3.7 gm/dL (3.4-4.8); Albumin/Globulin Ratio 1.4 (1.2-2.2); Alkaline Phosphatase 206 U/L (46-116); Anion Gap 10 (7-16); Aspartate Amino Transferase 57 U/L (0-34); BUN/Creatinine Ratio 13 Ratio (12-20); Bilirubin,Total 0.4 mg/dL (0.3-1.2); Blood Urea Nitrogen 32 mg/dL (9-23); Calcium 9.3 mg/dL (8.3-10.6); Calcium (Corrected) 9.5 mg/dL (8.5-10.1); Carbon Dioxide 22.1 mMol/L (20.0-31.0); Chloride 111 mMol/L (98-107); Creatine Kinase 338 U/L (34-171); Creatinine (Component) 2.4 mg/dL (0.6-1.3); Estimated Creatinine Clearance 19.9 mL/min (>60); Globulin 2.7 gm/dL (2.3-3.5); Glucose 109 mg/dL (74-106); Osmolality,Calculated 292 (275-295); Potassium 4.5 mMol/L (3.4-5.1); Sodium 143 mMol/L (136-145); Total Protein 6.4 gm/dL (5.7-8.2); eGFR 27 See Note
[2025-04-10 08:00] VITALS: BP 170/80; PULSE 76; PULSE 78; RESP 18; TEMP 36.2; O2SAT 97
[2025-04-10] MEDS: ASPIRIN EC 81 MG TABEC PO (08:08)
[2025-04-10] MEDS: HEPARIN SOD INJ 5000 UNIT/ML VIAL SC (08:08)
[2025-04-10 09:15] VITALS: BMI 26.3
[2025-04-10 11:54] VITALS: BP 157/73; PULSE 72; RESP 17; TEMP 36.6; O2SAT 96
[2025-04-10 12:00] VITALS: PULSE 70
[2025-04-10] MEDS: HYDROcodone/APAP 5/325 TABLET 1 TAB PO (12:15)
--- NOTE | 2025-04-10 12:57 | PD.RESDS ---
Planned Discharge Date 04/10/25 DS: Providers Provider Date of admission: 04/06/25 17:06 Primary care physician: Physician No Primary/Family Admitting Provider: Brandon Seay MD Attending Provider on Admission: Brandon Seay MD Consults: 04/06/25 12:44 Consult to Neurology / Tele-Neurology Routine Comment: Consulting Provider: [facility] 04/06/25 19:08 Consult to Neurology / Tele-Neurology Routine Comment: R/O CVA Consulting Provider: Liban Rocha 04/06/25 20:00 Referral Physical Therapy Routine Comment: Physician Instructions: Referral Speech Therapy Routine Comment: 04/06/25 21:20 Referral Physical Therapy Routine Comment: Physician Instructions: 04/09/25 10:59 Consult to Nephrology Routine Comment: Consulting Provider: Lydia Shook Attending Provider on DC: Sony Wiggins MD Discharging Provider: Sony Wiggins MD DS: Diagnosis Problem List Completed Was Problem List Reviewed/Reconciled?: Yes Hospital Course Hospital Course Hospital course: Mino Lofton is a 75-year-old male with a past medical history of hypertension, hyperlipidemia, type 2 diabetes, status post pacemaker placement who was admitted for CVA workup. Symptoms included left-sided weakness and left-sided facial droop and CT head negative for acute abnormalities, CTA head/neck showed 40 to 60% stenosis of left ICA and 70 to 80% stenosis of distal basilar artery but no LVO. Echo with bubble study was negative for PFO/ASD, EF 55 to 60% with moderate to severe TR. He was started on aspirin and statin and neurology was following. Unable to obtain MRI as pacemaker compatibility was unable to be confirmed. Additionally, patient had positive straight leg raise test on left lower extremity and neurology recommended MRI of the lumbar sacral spine but again unable to obtain due to pacemaker. Repeat CT head was negative for interval changes. Thus, decision was made that patient can obtained MRI lumbosacral spine and MRI brain outpatient and follow-up with neurology for EMG nerve conduction studies of both lower extremities. Diagnoses during admission: #? CVA #CARMELA #Hyperlipidemia #Status post pacemaker placement #Stage II hypertension #Lumbosacral radiculopathy #Type 2 diabetes mellitus #Transaminitis with elevated T. bili (Resolved) #Normocytic anemia Discharge instructions: ? Atorvastatin dose increased to 40 mg daily ? Start taking amlodipine 10 mg daily for blood pressure control ? Continue taking all other home medications as prescribed ? Follow-up with PCP within 1-2 weeks of discharge and recommend referral to digital asset specialist if renal function continues to decline ? Follow-up with neurologist, Dr. Rocha, outpatient for MRI studies ? If you do not have a PCP, you can follow-up at the [facility] (you can call [phone] to make an appointment) ? Return to ED if symptoms worsen or recur ----- Plan discussed with attending physician Dr. Geena Wiggins MD PGY-2 Internal Medicine Time Spent with Patient Time attestation: Total time spent providing and/or coordinating discharge services: 36 min Time spent: Greater than 30 minutes Exam Vital Signs Temp Pulse Resp BP Pulse Ox O2 Del Method O2 Flow Rate 97.8 F 70 17 157/73 H 96 Room Air 98 04/10/25 11:54 04/10/25 12:00 04/10/25 11:54 04/10/25 11:54 04/10/25 11:54 04/10/25 11:54 04/07/25 16:00 Narrative Exam General: Elderly man. Neurologic: Left-sided facial droop. 3 out of 5 strength in the left upper extremity, 3 out of 5 strength in the left lower extremity. HEENT: Normocephalic, atraumatic, mucous membranes moist. Pupils reactive to light. Heart: Regular rate and rhythm, normal S1 and S2, no murmurs. Lungs: Clear to auscultation bilaterally with no wheezing or crackles. Abdomen: Soft, nondistended, nontender, positive bowel sounds. No guarding or rebound tenderness. Extremities: No edema. 2+ radial and dorsalis pedis pulses bilaterally. Skin: Warm. Dry. No rash or ecchymoses. Discharge Plan Plan Patient Disposition: Home w/HOME HEALTH Patient condition on transfer: Stable Care Plan Goals: ? Atorvastatin dose increased to 40 mg daily ? Start taking amlodipine 10 mg daily for blood pressure control ? Continue taking all other home medications as prescribed ? Follow-up with PCP within 1-2 weeks of discharge and recommend referral to digital asset specialist if renal function continues to decline ? Follow-up with neurologist, Dr. Rocha, outpatient for MRI studies ? If you do not have a PCP, you can follow-up at the [facility] (you can call [phone] to make an appointment) ? Return to ED if symptoms worsen or recur Prescriptions/Referrals Prescriptions/Med Rec: New atorvastatin 40 mg tablet 40 mg PO HS 30 Days Qty: 30 0RF amlodipine 10 mg tablet 10 mg PO HS 30 Days Qty: 30 0RF Continued metformin 1,000 mg Tablet 1,000 mg PO BID aspirin [Aspir-Low] 81 mg Tablet,Delayed Release (Dr/Ec) 81 mg PO QDAY Qty: 30 0RF losartan 100 mg tablet 100 mg PO DAILY Patient Comments: TAKE 1 TABLET BY MOUTH EVERY DAY Discontinued atorvastatin 10 mg tablet 10 mg PO HS Patient Comments: TAKE 1 TABLET BY MOUTH EVERY DAY Referrals: No Primary/Family,Physician [Primary Care Provider] Patient/Caregiver Discharge Instructions Other Discharge Activity Instructions:: Atorvastatin dose increased to 40 mg daily ? Start taking amlodipine 10 mg daily for blood pressure control ? Continue taking all other home medications as prescribed ? Follow-up with PCP within 1-2 weeks of discharge and recommend referral to digital asset specialist if renal function continues to decline ? Follow-up with neurologist, Dr. Rocha, outpatient for MRI studies ? If you do not have a PCP, you can follow-up at the [facility] (you can call [phone] to make an appointment) ? Return to ED if symptoms worsen or recur Print Language: Thai Stand Alone Forms: Deisy Award Info., Patient Portal Info Letter Discharge Order Discharge Orders: Discharge (Routine); Ordered 04/10/25 Ordered By: Sony Wiggins Quality Discharge Quality Measures VTE prophylaxis Attestestation Attestation I attest that I was physically present for the evaluation, physical examination, lab and imaging review of the patient with the residents. I discussed the case with the residents and agree with the findings and plans of care as documented above. Brandon Seay MD
[2025-04-10 16:00] VITALS: BP 168/73; PULSE 75; PULSE 76; RESP 17; TEMP 36.7; O2SAT 96
--- NOTE | 2025-04-10 19:22 | PC.CC ---
hh order sent [facility]. They will need to decline 1st before sending to other agencies
--- NOTE | 2025-04-10 22:52 | PD.VPROG1 ---
Telemedicine visit statement This visit was conducted with the use of phone was obtained on 04/10/25. Documentation for date of: 04/10/25 Subjective Subjective Interval history: Patient is in MedSurg unit. Continue to have pain in the left lower extremity in the proximal thigh but significantly improved from admission. Virtual exam Vital Signs Temp Pulse Resp BP Pulse Ox O2 Del Method O2 Flow Rate 98.0 F 76 17 168/73 H 96 Room Air 98 04/10/25 16:00 04/10/25 16:00 04/10/25 16:00 04/10/25 16:00 04/10/25 16:00 04/10/25 16:00 04/07/25 16:00 Objective Labs 04/10/25 05:19 04/10/25 05:19 Labs: Laboratory Results - last 24 hr 04/10/25 05:19 WBC 7.0 RBC 3.76 L Hgb 11.6 L Hct 33.1 L MCV 88 MCH 30.9 MCHC 35.0 RDW Std Deviation 39.3 Plt Count 244 Neut % (Auto) 65 Lymph % (Auto) 17 [place] % (Auto) 10 Eos % (Auto) 7 Baso % (Auto) 0 Neut # (Auto) 4.6 Lymph # (Auto) 1.2 [place] # (Auto) 0.7 Eos # (Auto) 0.5 Baso # (Auto) 0.0 Immature Gran # (Auto) 0.03 H Absolute Nucleated RBC 0.00 Immature Gran % 0 Nucleated RBC % 0 Sodium 143 Potassium 4.5 Chloride 111 H Carbon Dioxide 22.1 Anion Gap 10 BUN 32 H Creatinine 2.4 H D Estim Creat Clear Calc 19.9 L eGFR 27 L BUN/Creatinine Ratio 13 Glucose 109 H Calculated Osmolality 292 Calcium 9.3 Corrected Calcium 9.5 Total Bilirubin 0.4 AST 57 H ALT 59 H Alkaline Phosphatase 206 H Total Creatine Kinase 338 H Total Protein 6.4 Albumin 3.7 Globulin 2.7 Albumin/Globulin Ratio 1.4 Assessment & Plan Problem List (1) Left-sided weakness: Status: Acute Assessment and plan: Presented with pain/radiculopathy, significantly improved Follow-up with MRI brain/MRI of the lumbosacral spine to evaluate further after we get the compatibility of the pacemaker information from the funeral car driver as an outpatient. Repeat CT head did not show any acute intracranial abnormalities. Continue with symptomatic therapy and physical therapy as he tolerates. Patient is stable from neurology standpoint for discharge. Follow-up in my office upon referral to do EMG nerve conduction study of both lower extremities. (2) Diabetes: Status: Chronic Assessment and plan: Resume metformin upon discharge 1000 mg twice a day (3) HTN (hypertension), benign: Status: Chronic Assessment and plan: Continue with current blood pressure medications avoiding nephrotoxic agents Continue losartan and amlodipine (4) Hyperlipidemia: Status: Chronic Assessment and plan: Continue with statin (5) CARMELA (acute kidney injury): Status: Acute Assessment and plan: Nephrology has been on board.
--- NOTE | 2025-04-11 09:44 | PC.CC ---
Addendum entered by Lorna Hale RN 04/11/25 10:58: SOC is 04/12 Addendum entered by Lorna Hale RN 04/11/25 10:04: Patient has been accepted by [facility], patient booked, pending SOC Addendum entered by Lorna Hale RN 04/11/25 09:46: Referral sent to all other [facility]
== END 2025-04-10 17:55 | disposition home health service (06) | DRG 65 ==
LOC: SERX 17:20 → SERHOLD 18:16 → S2NX 22:27 → SERHOLD 04-07 05:50 → S2NX 04-07 06:43 → S3SX 04-10 00:54
PROVIDERS: Internal Medicine; Admitting Provider Student in an Organized Health Care Education/Training Program; Emergency Provider Emergency Medicine; Visit Provider Student in an Organized Health Care Education/Training Program
DX: I63.9 Cerebral infarction, unspecified (principal); N17.9 Acute kidney failure, unspecified; R29.810 Facial weakness; I10 Essential (primary) hypertension; E78.5 Hyperlipidemia, unspecified; E11.9 Type 2 diabetes mellitus without complications; W19.XXXA Unspecified fall, initial encounter; M54.17 Radiculopathy, lumbosacral region; E86.0 Dehydration; R74.01 Elevation of levels of liver transaminase levels; D64.9 Anemia, unspecified; N14.11 Contrast-induced nephropathy; I35.0 Nonrheumatic aortic (valve) stenosis; N40.0 Benign prostatic hyperplasia without lower urinary tract symptoms; R53.1 Weakness; T50.8X5A Adverse effect of diagnostic agents, initial encounter; Z95.0 Presence of cardiac pacemaker; Z79.84 Long term (current) use of oral hypoglycemic drugs; Z79.82 Long term (current) use of aspirin; Z79.899 Other long term (current) drug therapy
CPT/HCPCS: 36415; 70450; 70496; 70498; 71045; 71275; 74174; 76705; 76770; 80053; 80061; 80069; 80307; 81001; 82550; 82570; 83036; 83735; 83880; 84100; 84156; 84484; 84703; 85025; 85610; 85730; 86850; 86900; 86901; 92610; 93005; 93306; 93970; 96361; 96372; 96374; 97162; 99285; A4649; J1171; J1644; J1815; J2470; J3475; J7120; Q9967; A9270

== ENCOUNTER → 2025-04-20 | Outpatient (CLI) | payer MEDICARE, MEDICAID, SELFPAY ==
[2025-04-20 09:28] LABS: Collection Type, Urine Clean Catch
[2025-04-20 10:23] LABS: Basophils # (Auto) 0.0 Thou/mm3 (0.0-0.2); Basophils % (Auto) 0 % (0-2.5); Eosinophils # (Auto) 0.5 Thou/mm3 (0.0-0.5); Eosinophils % (Auto) 7 % (0-10); Hematocrit 40.3 % (41.0-53.0); Hemoglobin 13.7 g/dL (13.5-16.0); Immature Granulocytes Auto 0.02 Thou/mm3 (0.00-0.00); Lymphocytes # (Auto) 1.4 Thou/mm3 (1.0-4.8); Lymphocytes % (Auto) 19 % (10-50); Mean Corpuscular HGB Conc 34.0 g/dl (31.0-37.0); Mean Corpuscular Hemoglobin 30.4 pg (25.0-35.0); Mean Corpuscular Volume 89 fL (80-100); Monocytes # (Auto) 0.5 Thou/mm3 (0.0-0.8); Monocytes % (Auto) 6 % (0-12); Neutrophils # (Auto) 4.8 Thou/mm3 (1.8-7.7); Neutrophils % (Auto) 67 % (37-80); Nucleated Red Blood Cell # 0.00 Thou/mm3 (0.00-0.00); Nucleated Red Blood Cell % 0 /100 WBC (0); Platelet Count 286 Thou/mm3 (140-440); RDW Standard Deviation 39.1 fL (35.1-43.9); Red Blood Count 4.51 Miln/mm3 (4.50-5.90); White Blood Count 7.2 Thou/mm3 (3.8-10.6)
[2025-04-20 10:33] LABS: Bilirubin,Urine Negative (Negative); Blood,Urine Negative (Negative); Clarity,Urine Clear (Clear/Hazy); Color,Urine Colorless (Lt Yel-Yel); Culture Indicated,Urine Not Indicated; Glucose, Urine Negative (Negative); Ketones,Urine Negative (Negative); Leukocyte Esterase,Urine Negative (Negative); Nitrite,Urine Negative (Negative); PH,Urine 6.5 (5.0-7.0); Protein,Urine 2+ (Neg - Trace); RBC,Urine 3 /hpf (0-3); Specific Gravity,Urine 1.013 (1.001-1.035); Squamous Epithelial Cell,Urine < 1 /hpf (0-5); Urobilinogen,Urine Negative mg/dL (0.0-1.0); WBC,Urine < 1 /hpf (0-5)
[2025-04-20 10:46] LABS: Alanine Aminotransferase 67 U/L (10-49); Albumin, Serum 5.1 gm/dL (3.4-4.8); Albumin/Globulin Ratio 1.6 (1.2-2.2); Alkaline Phosphatase 353 U/L (46-116); Anion Gap 12 (7-16); Aspartate Amino Transferase 38 U/L (0-34); BUN/Creatinine Ratio 22 Ratio (12-20); Bilirubin,Total 0.6 mg/dL (0.3-1.2); Blood Urea Nitrogen 28 mg/dL (9-23); Calcium 9.9 mg/dL (8.3-10.6); Calcium (Corrected) 9.9 mg/dL (8.5-10.1); Carbon Dioxide 25.8 mMol/L (20.0-31.0); Cardiac Risk Estimate 2.9 RATIO (4.0-6.7); Chloride 102 mMol/L (98-107); Cholesterol 134 mg/dL (132-200); Creatinine (Component) 1.3 mg/dL (0.6-1.3); Globulin 3.2 gm/dL (2.3-3.5); Glucose 152 mg/dL (74-106); HDL Cholesterol 46 mg/dL (40-60); LDL Cholesterol,Calculated 54 mg/dL (0-130); Osmolality,Calculated 287 (275-295); Potassium 5.1 mMol/L (3.4-5.1); Sodium 140 mMol/L (136-145); Thyroid Stimulating Hormone 5.35 uIU/mL (0.55-4.78); Total Protein 8.3 gm/dL (5.7-8.2); Triglycerides 169 mg/dL (30-150); eGFR 57 See Note
[2025-04-20 10:49] LABS: Glucose Estimated Average 189 mg/dL (80-131); Hemoglobin A1C 8.2 % Hgb (4.8-6.0)
[2025-04-20 10:49] LABS: Creatinine MALB Rnd Ur 46 mg/dL (30-125); Microalbumin Creat Ratio 1909 mg/gCrea (<30); Microalbumin, Random Urine 878 mg/L (0-300)
[2025-04-20 11:46] LABS: Prostate Specific Antigen 0.45 ng/mL (0-4.00)
== END | disposition home or self-care (01) ==
LOC: COPL 08:48
PROVIDERS: PCP Family Medicine; Referring Provider Physician Assistant; Visit Provider Physician Assistant
DX: I12.9 Hypertensive chronic kidney disease with stage 1 through stage 4 chronic kidney disease, or unspecified chronic kidney disease (principal); E11.22 Type 2 diabetes mellitus with diabetic chronic kidney disease; N18.4 Chronic kidney disease, stage 4 (severe); E78.5 Hyperlipidemia, unspecified; E11.65 Type 2 diabetes mellitus with hyperglycemia; Z12.5 Encounter for screening for malignant neoplasm of prostate
CPT/HCPCS: 36415; 80053; 80061; 81001; 82043; 82570; 83036; 84153; 84443; 85025

== ENCOUNTER 2025-05-31 06:32 | Day surgery (SDC) | payer MEDICARE, MEDICAID, SELFPAY ==
[2025-05-29 16:00] VITALS: BMI 25.4
--- NOTE | 2025-05-30 07:00 | EKG_ITS ---
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
[2025-05-30 12:01] LABS: Basophils # (Auto) 0.0 Thou/mm3 (0.0-0.2); Basophils % (Auto) 0 % (0-2.5); Eosinophils # (Auto) 0.2 Thou/mm3 (0.0-0.5); Eosinophils % (Auto) 2 % (0-10); Hematocrit 33.4 % (41.0-53.0); Hemoglobin 11.5 g/dL (13.5-16.0); Immature Granulocytes Auto 0.02 Thou/mm3 (0.00-0.00); Lymphocytes # (Auto) 1.2 Thou/mm3 (1.0-4.8); Lymphocytes % (Auto) 15 % (10-50); Mean Corpuscular HGB Conc 34.4 g/dl (31.0-37.0); Mean Corpuscular Hemoglobin 31.1 pg (25.0-35.0); Mean Corpuscular Volume 90 fL (80-100); Monocytes # (Auto) 0.5 Thou/mm3 (0.0-0.8); Monocytes % (Auto) 6 % (0-12); Neutrophils # (Auto) 5.9 Thou/mm3 (1.8-7.7); Neutrophils % (Auto) 76 % (37-80); Nucleated Red Blood Cell # 0.00 Thou/mm3 (0.00-0.00); Nucleated Red Blood Cell % 0 /100 WBC (0); Platelet Count 259 Thou/mm3 (140-440); RDW Standard Deviation 41.2 fL (35.1-43.9); Red Blood Count 3.70 Miln/mm3 (4.50-5.90); White Blood Count 7.8 Thou/mm3 (3.8-10.6)
[2025-05-30 12:08] LABS: INR 1.0 (0.9-1.3); Partial Thromboplastin Time 25.4 Seconds (22.0-36.0); Prothrombin Time 10.3 Seconds (9.0-12.2)
[2025-05-30 12:11] LABS: Anion Gap 10 (7-16); BUN/Creatinine Ratio 22 Ratio (12-20); Blood Urea Nitrogen 39 mg/dL (9-23); Calcium 9.1 mg/dL (8.3-10.6); Carbon Dioxide 23.1 mMol/L (20.0-31.0); Chloride 104 mMol/L (98-107); Creatinine (Component) 1.8 mg/dL (0.6-1.3); Estimated Creatinine Clearance 25.4 mL/min (>60); Glucose 293 mg/dL (74-106); Osmolality,Calculated 294 (275-295); Potassium 5.8 mMol/L (3.4-5.1); Sodium 137 mMol/L (136-145); eGFR 38 See Note
[2025-05-31] VITALS (11 sets, daily range): BP systolic 113–148; BP diastolic 51–69; PULSE 68–93; RESP 12–18; TEMP 36.4–36.8; O2SAT 96–98
--- NOTE | 2025-05-31 07:25 | CHAP ---
Prayed with patient prior to procedure.
[2025-05-31] MEDS: SOD POLYSTYRENE SULFON SUSP 15 GM/60 ML BTL 30 GM PO (07:31)
[2025-05-31] MEDS: INSULIN HUM REGULAR 1 UNIT/0.01 ML (PER UNIT) 10 UNIT IV (07:36)
[2025-05-31] MEDS: DEXTROSE 5%-0.45% NS 500 ML 100 ML IV (07:41)
[2025-05-31] MEDS: SODIUM CHLORIDE 0.45 % 500 ML 125 ML IV (09:08)
--- NOTE | 2025-05-31 10:34 | ESOP_ITS ---
RE: KEYANNA PARIKH : 1950 DATE OF OPERATION: 05/31/2025 PROCEDURES PERFORMED: 1. Selective catheter placement in aortic arch, aortic arch angiogram. 2. Selective catheter placement in right common carotid artery, and right carotid and cerebral angiogram, both extracranial and intracranial angiogram. 3. Selective cannulation of the left common carotid artery, left carotid angiogram, and left cerebral angiogram intracranial and extracranial angiogram. 4. Selective cannulation of the left subclavian artery, left subclavian and vertebral angiogram. 5. Iliofemoral angiogram. 6. Conscious sedation 30 minute duration. 7. Ultrasound-guided access right femoral artery. DIAGNOSIS: History of transient ischemic attack, mini stroke, and bilateral carotid disease and 90% stenosis left carotid stenosis. HISTORY AND INDICATIONS: The patient is a 75-year-old male with history of hypertension, diabetes mellitus, chronic kidney disease stage III. He has had history of neurologic symptoms, TIA, admitted to the hospital recently and discharged home. Carotid CTA showed bilateral carotid disease approximately 50% stenosis reported on the right side and vertebral disease. Carotid duplex scan showed 90% stenosis of the left internal carotid artery, 3 meter velocity, hence because of conflicting reports and patient's presentation carotid and cerebral angiogram recommended to assess if the patient is a candidate for carotid intervention such as stent placement or endarterectomy. PROCEDURE DETAILS: Patient was brought to the cardiac catheterization laboratory. Patient was found to have high potassium of 5.83. BUN slightly elevated at 32, creatinine 1.8. Patient was given Kayexalate 30 g and insulin was given since the blood sugar was 230, 10 units of insulin given, proceed with cardiac catheterization. The patient was given conscious sedation, brought to the cardiac catheterization laboratory. Right femoral artery was prepped and draped in sterile fashion. 1% Xylocaine local anesthesia was given. Seldinger technique used. Ultrasound guidance was used to cannulate the right femoral artery. Used Amplatz guide wire to pass because of sclerosis of the femoral artery. A 5-Syrian sheath was introduced. The patient was given conscious sedation. A total of 1 mg of Versed, 50 mcg of fentanyl. The 5-Syrian pigtail catheter advanced into the aortic arch. Aortic arch angiogram was performed. Digital subtraction method with hand injection. Subsequently select right common carotid artery selective cannulation using a Melo 2 diagnostic catheter. Carotid and cerebral angiogram performed. Multiple views obtained. Subsequently the Melo 2, 5-Syrian diagnostic catheter was placed in the left common carotid artery, and carotid and cerebral angiograms were performed successfully. Subsequently iliofemoral angiogram performed. Manual compression was applied. The patient also underwent subclavian angiogram. Melo 2 catheter was placed in the subclavian artery. Left subclavian angiogram performed. Patient had no complications. FINDINGS: Are as follows: The aortic arch study showed type B aortic arch and calcification. Normal size aorta. Gives off innominate artery, subclavian artery, vertebral arteries, and left common carotid artery. Carotid angiogram showed following findings: The right common carotid artery showed no significant stenosis. Right internal carotid artery showed mild plaque, less than 30% stenosis, whereas external carotid artery is normal. Cerebral angiogram on the right side showed right middle cerebral artery is normal. Anterior cerebral artery is normal. No evidence of cerebral aneurysms or AV malformations. Left carotid angiogram showed following results: Left common carotid artery showed mild disease distally. Subsequently left internal carotid artery is tortuous, takes off horizontally and then goes up. At the corner of the horizontal to vertical takeoff there is a 90% discrete stenosis. The patient appears to have extreme tortuosity as well and the bifurcation is very high as well. This is only 1 cm below the jaw. Intracranial portion of internal carotid artery is normal. Anterior middle cerebral artery is normal. No evidence of aneurysms or AV malformations. Iliofemoral angiogram showed that there is some disease of the femoral artery, but no significant stenosis, site of the cannulation is just above the bifurcation. SUMMARY OF FINDINGS: Consistent with: 1. 90% stenosis of the left internal carotid artery, high bifurcation. 2. Mild disease involving right internal carotid artery and left vertebral arteries. RECOMMENDATION: Patient will be continued on medical management. We will discuss the options of endarterectomy versus carotid stent placement depending on his symptoms. Patient has a high-grade stenosis. Will require either intervention or endarterectomy. We will discuss with the vascular surgeon as appropriate. Patient did have renal insufficiency. Total contrast used is about 75 mL. We will go ahead and monitor renal function closely. Hydration with close to 1 liter of fluid in a week from discharge. DT: 08:50:10 TT: 10:32:00 Ref: [id number] - TID: [id number] [facility]
== END 2025-05-31 12:50 | disposition home or self-care (01) ==
PROVIDERS: PCP Family Medicine; Referring Provider Internal Medicine Cardiovascular Disease; Visit Provider Internal Medicine Cardiovascular Disease
PROC: (CPT 36224; principal; 2025-05-31 07:30)
DX: I25.118 Atherosclerotic heart disease of native coronary artery with other forms of angina pectoris (principal); I65.23 Occlusion and stenosis of bilateral carotid arteries; E11.22 Type 2 diabetes mellitus with diabetic chronic kidney disease; I12.9 Hypertensive chronic kidney disease with stage 1 through stage 4 chronic kidney disease, or unspecified chronic kidney disease; N18.30 Chronic kidney disease, stage 3 unspecified
CPT/HCPCS: 36224; 93567; 93458; G0278; 36415; 80048; 85025; 85610; 85730; 93005; 99152; 99153; A4649; C1751; C1769; C1894; J0168; J0461; J1643; J1815; J2250; J2312; J2371; J3010; J3490; J7030; J7042; Q9967; A9270; C1725; J2305